=== PATIENT | female | born 1935 | race Caucasian/White ===

== ENCOUNTER 2017-06-06 14:47 | Emergency (ER) | payer MEDICARE, BC ==
[2017-06-06 14:54] VITALS: RESP 18; TEMP 97.3
[2017-06-06] MEDS ORDERED: SODIUM CHLORIDE 0.9% 500 ML IV STA (15:12)
--- NOTE | 2017-06-06 15:19 | ED ---
General Adult HPI - General Chief complaint: Fall Stated complaint: Fall Time Seen by Provider: 06/06/17 14:49 Source: patient, EMS, RN notes reviewed Mode of arrival: EMS Limitations: no limitations - History of Present Illness Initial comments: Patient 82-year-old female who presents emergency room today by EMS, with chief complaint of a fall that occurred just prior to arrival. 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 She states she did not lose consciousness. Does admit to a bruise over her right cheek. Also admits to some abrasions or skin tears to the right forearm and hand. Patient states is no pain in this area has full range of motion. Patient states she was able to get herself up with some help. Denies any lightheadedness or dizziness at this time. She states that she has a history of orthostatic hypotension has had similar symptoms in the past. Patient denies any recent fever, chills, shortness of breath, chest pain, back pain, abdominal pain, nausea or vomiting, numbness or tingling, dysuria or hematuria, constipation or diarrhea, headaches or visual changes, or any other complaints. - Related Data Home Medications Medication Instructions Recorded Confirmed Allopurinol [Zyloprim] 300 mg PO DAILY 06/06/17 06/06/17 Aspirin [Adult Low Dose Aspirin EC] 81 mg PO DAILY 06/06/17 06/06/17 Cholecalciferol [Vitamin D3] 1,000 unit PO DAILY 06/06/17 06/06/17 Levothyroxine Sodium [Synthroid] 25 mcg PO DAILY 06/06/17 06/06/17 buPROPion SR [Wellbutrin Sr] 100 mg PO DAILY 06/06/17 06/06/17 Allergies Allergy/AdvReac Type Severity Reaction Status Date / Time Penicillins Allergy Unknown Verified 06/06/17 15:04 Sulfa (Sulfonamide Allergy Unknown Verified 06/06/17 15:04 Antibiotics) Review of Systems ROS Statement: Those systems with pertinent positive or pertinent negative responses have been documented in the HPI. ROS Other: All systems not noted in ROS Statement are negative. Past Medical History Additional Past Medical History / Comment(s): Orthostatic hypotension, pacemaker , History of Any Multi-Drug Resistant Organisms: None Reported Past Surgical History: Orthopedic Surgery Past Psychological History: No Psychological Hx Reported Smoking Status: Former smoker Past Alcohol Use History: None Reported Past Drug Use History: None Reported General Exam - General Exam Comments Initial Comments: General: The patient is awake and alert, in no distress, and does not appear acutely ill. Eye: Pupils are equal, round and reactive to light, extra-ocular movements are intact. No nystagmus. There is normal conjunctiva bilaterally. No signs of icterus. Ears, nose, mouth and throat: There are moist mucous membranes and no oral lesions. Neck: The neck is supple, there is no tenderness or JVD. Cardiovascular: There is a regular rate and rhythm. No murmur, rub or gallop is appreciated. Respiratory: Lungs are clear to auscultation, respirations are non-labored, breath sounds are equal. No wheezes, stridor, rales, or rhonchi. Gastrointestinal: Soft, non-distended, non-tender abdomen without masses or organomegaly noted. There is no rebound or guarding present. No CVA tenderness. Bowel sounds are unremarkable. Musculoskeletal: Normal ROM, no tenderness. Strength 5/5. Sensation intact. Pulses equal bilaterally 2+. Neurological: A&O x 3. CN II-XII intact, There are no obvious motor or sensory deficits. Coordination appears grossly intact. Speech is normal. Skin: Patient does have some bruising on the right cheek and right forehead. Patient does have a small laceration to the right cheek area not bleeding. Psychiatric: Cooperative, appropriate mood & affect, normal judgment. Limitations: no limitations Course Vital Signs 06/06/17 06/06/17 14:50 16:54 Temperature 97.3 F L Pulse Rate 78 Pulse Rate [ 76 Sitting] Pulse Rate [ 80 Standing] Pulse Rate [ 76 Supine] Respiratory 18 Rate Blood Pressure 177/81 Blood Pressure 179/87 [Sitting] Blood Pressure 161/72 [Standing] Blood Pressure 183/84 [Supine] O2 Sat by Pulse 99 Oximetry EKG Findings - EKG Comments: EKG Findings:: EKG performed at 1542: Shows an electronically ventricular paced rhythm at 69 beats per minute. MI interval 238. QRS 164. QT/QTc 466/499 Medical Decision Making - Medical Decision Making Case discussed in detail with attending physician Dr. Pino. Patient's CT of the head and neck was reviewed and shows 1. Mild generalized atrophy. No acute intracranial abnormality seen. 2. High density material filling and slightly expanding they've frontal sinuses. Posterior russo of the frontal sinuses are extremely thin or dehiscent. . May reflect a mucocele. These findings were discussed with the patient. She does not that she has been following up with ENT and also ophthalmology through [facility] for problems with her sinuses. She states she's been on a nasal spray which to help quit that. Patient denies any changes with this condition but does admit to improvement with the nasal spray that she's currently using. - Lab Data Result diagrams: 06/06/17 15:30 06/06/17 15:30 Lab Results 06/06/17 06/06/17 Range/Units 15:30 15:30 WBC 6.6 (3.8-10.6) k/uL RBC 2.88 L (3.80-5.40) m/uL Hgb 9.3 L (11.4-16.0) gm/dL Hct 30.7 L (34.0-46.0) % MCV 106.4 H (80.0-100.0) fL MCH 32.3 (25.0-35.0) pg MCHC 30.3 L (31.0-37.0) g/dL RDW 17.9 H (11.5-15.5) % Plt Count 242 (150-450) k/uL Neutrophils % 72 % Lymphocytes % 14 % Monocytes % 8 % Eosinophils % 4 % Basophils % 1 % Neutrophils # 4.7 (1.3-7.7) k/uL Lymphocytes # 0.9 L (1.0-4.8) k/uL Monocytes # 0.5 (0-1.0) k/uL Eosinophils # 0.3 (0-0.7) k/uL Basophils # 0.0 (0-0.2) k/uL Hypochromasia Slight Anisocytosis Slight Macrocytosis Marked Sodium 140 (137-145) mmol/L Potassium 4.4 (3.5-5.1) mmol/L Chloride 107 (98-107) mmol/L Carbon Dioxide 23 (22-30) mmol/L Anion Gap 10 mmol/L BUN 26 H (7-17) mg/dL Creatinine 1.62 H (0.52-1.04) mg/dL Est GFR (MDRD) Af Amer 37 (>60 ml/min/1.73 sqM) Est GFR (MDRD) Non-Af 30 (>60 ml/min/1.73 sqM) Glucose 107 H (74-99) mg/dL Calcium 9.4 (8.4-10.2) mg/dL Total Bilirubin 0.3 (0.2-1.3) mg/dL AST 24 (14-36) U/L ALT 30 (9-52) U/L Alkaline Phosphatase 93 (38-126) U/L Total Protein 6.4 (6.3-8.2) g/dL Albumin 3.9 (3.5-5.0) g/dL Disposition Clinical Impression: Fall, Facial contusion, Skin tear of right forearm without complication Disposition: HOME SELF-CARE Condition: Good Instructions: Skin Tear (ED) Additional Instructions: Please follow-up with the ENT specialist for mucocele as discussed. Please change dressing daily to the right forearm. Please return to emergency room if symptoms increase or worsen or for any other concerns. Referrals: Nonstaff,Physician [Primary Care Provider] - 1-2 days Franky Ching DO [Doctor of Osteopathic Medicine] - 1-2 days Time of Disposition: 17:07
[2017-06-06 15:42] LABS: Anisocytosis Slight; Basophils % (A) 1 %; CH 32.5; CHCM 30.7; Eosinophils # (A) 0.3 k/uL (0-0.7); Eosinophils % (A) 4 %; HCT 30.7 % (34.0-46.0); HDW 2.49; HGB 9.3 gm/dL (11.4-16.0); Hypochromasia Slight; Luc # (Auto) 0.13; Luc % (Auto) 2; Lymphocytes # (A) 0.9 k/uL (1.0-4.8); Lymphocytes % (A) 14 %; MCH 32.3 pg (25.0-35.0); MCHC 30.3 g/dL (31.0-37.0); MCV 106.4 fL (80.0-100.0); Macrocytosis Marked; Mean Platelet Volume 7.9; Monocytes # (A) 0.5 k/uL (0-1.0); Monocytes % (A) 8 %; Neutrophils # (A) 4.7 k/uL (1.3-7.7); Neutrophils % (A) 72 %; RBC 2.88 m/uL (3.80-5.40); RDW 17.9 % (11.5-15.5); WBC 6.6 k/uL (3.8-10.6); WBC (Perox) 6.66
[2017-06-06 15:46] LABS: Calcium 9.4 mg/dL (8.4-10.2); Potassium 4.4 mmol/L (3.5-5.1); Total Bilirubin 0.3 mg/dL (0.2-1.3); Total Protein 6.4 g/dL (6.3-8.2)
--- NOTE | 2017-06-06 16:23 | CT ---
EXAMINATION TYPE: CT brain lucille larose con DATE OF EXAM: 06/06/2017 COMPARISON: NONE HISTORY: 82-year-old female fall CT DLP: 1586 mGycm Automated exposure control for dose reduction was used. Technique: Examination of the head was done in axial plane without intravenous contrast. Coronal and sagittal reconstructions performed. CT of the cervical spine was obtained in axial plane without intravenous injection of contrast mater ial. Coronal and sagittal reformatted images were obtained from the axial views for evaluation of f ractures, spinal alignment and canal. FINDINGS: Head: There is no evidence of acute intracranial hemorrhage, acute ischemic changes, mass, mass-effect, or extra-axial fluid collection. There is no effacement of cerebral sulci or basal subarachnoid cister ns. There is no hydrocephalus. There is no midline shift. Whitley-white matter distinction is preserv ed. Mild generalized supratentorial volume loss. No calvarial fracture. There is high density material filling the frontal sinuses. The posterior wall of the frontal sinuses appear expanded and are either severely thinned or dehiscent. Some mucosal thickening scattered in t he ethmoid air cells and left sphenoid sinus. Mastoid air cells well pneumatized. Cervical spine: No craniocervical junction abnormality, predental space widening, or prevertebral soft tissue swellin g. There is either pannus or hypertrophied synovium at the C1 dens articulation mildly narrowing the spinal canal at this level. Severe disc/endplate degenerative changes as well as hypertrophic facet and uncovertebral joint arthr opathy throughout. There is a variable moderate spinal canal stenosis throughout, greatest at C6-C7. Grade 1 anterolisthesis that C3-C4 and C7-T1. Grade 1 retrolisthesis at C4-C5 and C6-C7. Variable moderate multilevel neural foraminal stenosis. No acute fracture of the cervical spine is seen. Sagittal and coronal reformatted images confirm above findings. COMBINED IMPRESSION: 1. Mild generalized atrophy. No acute intracranial abnormality seen. 2. High density material filling and slightly expanding the frontal sinuses. The posterior russo of t he frontal sinuses are either extremely thin or dehiscent. Findings may reflect a mucocele. Correlate for any known diagnosis and consider ENT referral. 3. No acute fracture of the cervical cervical spine seen. However, there are severe multilevel spondy lotic changes and secondary degenerative spondylolistheses.
[2017-06-06 17:41] VITALS: BP 164/74; PULSE 78
--- NOTE | 2017-06-07 06:10 | CDI ---
Dear Jaiden Pino: Please do addendum length of the laceration and also procedure if done. Thank you, Tirso Meadows, [employer] Handler Supervisor. If you have any questions, please contact [employer] at [phone]. mtdD
== END 2017-06-06 17:41 | disposition home or self-care (01) ==
LOC: EC 14:47
DX: S51.811A Laceration without foreign body of right forearm, initial encounter (principal); S00.83XA Contusion of other part of head, initial encounter; M62.58 Muscle wasting and atrophy, not elsewhere classified, other site; S01.411A Laceration without foreign body of right cheek and temporomandibular area, initial encounter; Z87.891 Personal history of nicotine dependence; Z79.82 Long term (current) use of aspirin; Z79.899 Other long term (current) drug therapy; Z88.0 Allergy status to penicillin; Z88.2 Allergy status to sulfonamides; W01.10XA Fall on same level from slipping, tripping and stumbling with subsequent striking against unspecified object, initial encounter; Y93.89 Activity, other specified
CPT/HCPCS: 36415; 70450; 72125; 80053; 85025; 93005; 99284

== ENCOUNTER 2018-01-11 14:21 | Inpatient (IN) | payer MEDICARE, BC ==
[2018-01-11] MEDS ORDERED: SODIUM CHLORIDE 0.9% 1,000 ML IV STA (14:54)
--- NOTE | 2018-01-11 15:10 | ED ---
General Adult HPI - General Chief complaint: Weakness Stated complaint: cardiac Source: EMS Mode of arrival: EMS Limitations: physical limitation - History of Present Illness Initial comments: Dictation was produced using [employer] dictation software. please excuse any grammatical, word or spelling errors. Chief Complaint: 82-year-old female presents with 2 days of generalized weakness and acute episode of presyncope. History of Present Illness: 82-year-old female with past medical history of glaucoma, dyslipidemia, status post pacemaker presents with 1 day of generalized weakness and one episode of presyncope. Patient reports that she was feeling generally weak over the past day. She has felt that she needed to be confined to bed due to her weakness. Today she attempted to get up to go to the fridge to eat some pudding when she almost passed out. She called EMS and was brought to the emergency department. Patient denies any constitutional symptoms. Denies any pain anywhere body. The ROS documented in this emergency department record has been reviewed and confirmed by me. Those systems with pertinent positive or negative responses have been documented in the HPI. All other systems are other negative and/or noncontributory. - Related Data Home Medications Medication Instructions Recorded Confirmed Allopurinol [Zyloprim] 300 mg PO DAILY 06/06/17 01/11/18 Aspirin [Adult Low Dose Aspirin EC] 81 mg PO DAILY 06/06/17 01/11/18 Cholecalciferol [Vitamin D3] 1,000 unit PO DAILY 06/06/17 01/11/18 Levothyroxine Sodium [Synthroid] 25 mcg PO DAILY 06/06/17 01/11/18 buPROPion SR [Wellbutrin Sr] 100 mg PO TID 06/06/17 01/11/18 Atorvastatin [Lipitor] 20 mg PO HS 01/11/18 01/11/18 Dorzolamide-Timolol 2%/0.5% 1 drop BOTH EYES BID 01/11/18 01/11/18 [dorzolamide-Timolol 2%/0.5%] Latanoprost [Xalatan 0.005%] 1 drop BOTH EYES HS 01/11/18 01/11/18 Allergies Allergy/AdvReac Type Severity Reaction Status Date / Time Penicillins Allergy Unknown Verified 06/06/17 15:04 Sulfa (Sulfonamide Allergy Unknown Verified 06/06/17 15:04 Antibiotics) Review of Systems ROS Statement: Those systems with pertinent positive or pertinent negative responses have been documented in the HPI. ROS Other: All systems not noted in ROS Statement are negative. Past Medical History Past Medical History: COPD, Thyroid Disorder Additional Past Medical History / Comment(s): Orthostatic hypotension, pacemaker , History of Any Multi-Drug Resistant Organisms: None Reported Past Surgical History: Heart Catheterization With Stent, Orthopedic Surgery, Tonsillectomy Past Psychological History: No Psychological Hx Reported Smoking Status: Former smoker Past Alcohol Use History: None Reported Past Drug Use History: None Reported General Exam - General Exam Comments Initial Comments: PHYSICAL EXAM: General Impression: Alert and oriented x3, not in acute distress HEENT: Normocephalic atraumatic, extra-ocular movements intact, pupils equal and reactive to light bilaterally, mucous membranes moist. Cardiovascular: Heart regular rate and rhythm, S1&S2 audible, no murmurs, rubs or gallops Chest: Lungs clear to auscultation bilaterally, no rhonchi, no wheeze, no rales , pacer scar Abdomen: Bowel sounds present, abdomen soft, non-tender, non-distended, no organomegaly Musculoskeletal: Pulses present and equal in all extremities, no peripheral edema Motor: Moves all extremities grossly, no focal deficits noted Neurological: CN II-XII grossly intact, no focal motor or sensory deficits noted Skin: Intact with no visualized rashes Psych: Normal affect and mood Limitations: physical limitation Course Vital Signs 01/11/18 14:24 Temperature 97.9 F Pulse Rate 71 Respiratory 18 Rate Blood Pressure 150/63 O2 Sat by Pulse 100 Oximetry Medical Decision Making - Medical Decision Making ED course: 82-year-old female presents with generalized weakness and acute episode of presyncope. Vital signs upon arrival are within acceptable limits. At this point it is unclear based on history what is causing patient's generalized weakness. There is suspicion that this may be related to cardiomyopathy. Patient does seem mildly dehydrated and has had poor oral intake over the last several hours. Patient denied falling. Denies any palpitations during that episode. Return evaluation obtained. No leukocytosis. White blood cell count is 8.1. Hemoglobin is 11.0 which is around her baseline. There is some signs of macrocytosis mildly. Coag panel unremarkable. Metabolic panel shows sodium 131 , non-gap acidosis with a bicarb of 18. Mild elevation of renal markers which is at her baseline. Magnesium level I.5. Rest metabolic panel is unremarkable. Chest x-rays obtained there is findings of retrocardiac airspace disease suspicious for atelectasis versus pneumonia. More history was obtained from the patient. She did state that she was having worsening coughing and shortness of breath. She however did not report any fevers, chills or night sweats. Given clinical presentation patient's symptoms likely secondary to dehydration, pulmonary infection and possibly congestive heart failure. Blood cultures obtained. Patient given 1 dose of antibiotics. Patient vancomycin for possible cavitary lesion which may represent MRSA pneumonia. Patient to benefit from admission for fluid resuscitation, antibiotics and reevaluation for improvement. EKG Interpretation: A 12 lead EKG was obtained. It was interpreted by myself and attending physician. There is a P wave before every QRS complex. Rate is 71. Rhythm is atrial sense ventricular. QRS 160,. Interval to 20, QTC 491 - Lab Data Result diagrams: 01/11/18 15:06 01/11/18 15:06 Lab Results 01/11/18 01/11/18 01/11/18 Range/Units 15:06 15:06 15:06 WBC 8.1 (3.8-10.6) k/uL RBC 3.40 L (3.80-5.40) m/uL Hgb 11.0 L (11.4-16.0) gm/dL Hct 34.0 (34.0-46.0) % MCV 100.1 H (80.0-100.0) fL MCH 32.3 (25.0-35.0) pg MCHC 32.3 (31.0-37.0) g/dL RDW 14.9 (11.5-15.5) % Plt Count 242 (150-450) k/uL Neutrophils % 80 % Lymphocytes % 11 % Monocytes % 5 % Eosinophils % 2 % Basophils % 0 % Neutrophils # 6.4 (1.3-7.7) k/uL Lymphocytes # 0.9 L (1.0-4.8) k/uL Monocytes # 0.4 (0-1.0) k/uL Eosinophils # 0.1 (0-0.7) k/uL Basophils # 0.0 (0-0.2) k/uL Hypochromasia Slight Macrocytosis Slight PT (9.0-12.0) sec INR (<1.2) APTT (22.0-30.0) sec Sodium 131 L (137-145) mmol/L Potassium 4.6 (3.5-5.1) mmol/L Chloride 102 (98-107) mmol/L Carbon Dioxide 18 L (22-30) mmol/L Anion Gap 11 mmol/L BUN 50 H (7-17) mg/dL Creatinine 1.60 H (0.52-1.04) mg/dL Est GFR (CKD-EPI)AfAm 34 (>60 ml/min/1.73 sqM) Est GFR (CKD-EPI)NonAf 29 (>60 ml/min/1.73 sqM) Glucose 93 (74-99) mg/dL Plasma Lactic Acid Rios (0.7-2.0) mmol/L Calcium 8.9 (8.4-10.2) mg/dL Magnesium 1.5 L (1.6-2.3) mg/dL Total Bilirubin 0.3 (0.2-1.3) mg/dL AST 22 (14-36) U/L ALT 24 (9-52) U/L Alkaline Phosphatase 51 (38-126) U/L Total Creatine Kinase 49 (30-135) U/L CK-MB (CK-2) 2.6 H* (0.0-2.4) ng/mL CK-MB (CK-2) Rel Index 5.3 Troponin I <0.012 (0.000-0.034) ng/mL NT-Pro-B Natriuret Pep pg/mL Total Protein 5.4 L (6.3-8.2) g/dL Albumin 3.5 (3.5-5.0) g/dL TSH 1.330 (0.465-4.680) mIU/L 01/11/18 01/11/18 01/11/18 Range/Units 15:06 15:06 15:06 WBC (3.8-10.6) k/uL RBC (3.80-5.40) m/uL Hgb (11.4-16.0) gm/dL Hct (34.0-46.0) % MCV (80.0-100.0) fL MCH (25.0-35.0) pg MCHC (31.0-37.0) g/dL RDW (11.5-15.5) % Plt Count (150-450) k/uL Neutrophils % % Lymphocytes % % Monocytes % % Eosinophils % % Basophils % % Neutrophils # (1.3-7.7) k/uL Lymphocytes # (1.0-4.8) k/uL Monocytes # (0-1.0) k/uL Eosinophils # (0-0.7) k/uL Basophils # (0-0.2) k/uL Hypochromasia Macrocytosis PT 11.3 (9.0-12.0) sec INR 1.2 H (<1.2) APTT 22.4 (22.0-30.0) sec Sodium (137-145) mmol/L Potassium (3.5-5.1) mmol/L Chloride (98-107) mmol/L Carbon Dioxide (22-30) mmol/L Anion Gap mmol/L BUN (7-17) mg/dL Creatinine (0.52-1.04) mg/dL Est GFR (CKD-EPI)AfAm (>60 ml/min/1.73 sqM) Est GFR (CKD-EPI)NonAf (>60 ml/min/1.73 sqM) Glucose (74-99) mg/dL Plasma Lactic Acid Rios 1.1 (0.7-2.0) mmol/L Calcium (8.4-10.2) mg/dL Magnesium (1.6-2.3) mg/dL Total Bilirubin (0.2-1.3) mg/dL AST (14-36) U/L ALT (9-52) U/L Alkaline Phosphatase (38-126) U/L Total Creatine Kinase (30-135) U/L CK-MB (CK-2) (0.0-2.4) ng/mL CK-MB (CK-2) Rel Index Troponin I (0.000-0.034) ng/mL NT-Pro-B Natriuret Pep 1140 pg/mL Total Protein (6.3-8.2) g/dL Albumin (3.5-5.0) g/dL TSH (0.465-4.680) mIU/L Disposition Clinical Impression: Pre-syncope Disposition: ADMITTED IP TO THIS HOSP Condition: Fair Is patient prescribed a controlled substance at d/c from ED?: No Referrals: Nonstaff,Physician [Primary Care Provider] - 1-2 days Decision Time: 16:40
[2018-01-11] MEDS ORDERED: SODIUM CHLORIDE 0.9% 500 ML IV STA (15:15)
--- NOTE | 2018-01-11 15:30 | XR ---
EXAMINATION TYPE: XR chest 2V DATE OF EXAM: 01/11/2018 COMPARISON: NONE HISTORY: Shortness of breath TECHNIQUE: Frontal and lateral views of the chest are obtained. 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 N o visceral pleural line is seen. Slight calcific right pleural parenchymal scarring and biapical pleu ral thickening are noted. Increased density is seen in the retrocardiac airspace overlying the lower thoracic spine not well delineated on the frontal view. Cardiomediastinal silhouette is within normal limits. Multilevel mild to moderate degenerative changes of the thoracic spine are noted. Multilead left-sided cardiac device is seen. IMPRESSION: 1. Retrocardiac airspace disease seen on the lateral view overlying the lower thoracic spine that cou ld represent atelectasis or pneumonia, however continued follow-up is recommended to resolution to en sure no underlying mass. 2. Emphysematous changes.
[2018-01-11 15:33] LABS: Basophils % (A) 0 %; Eosinophils # (A) 0.1 k/uL (0-0.7); Eosinophils % (A) 2 %; Hypochromasia Slight; Lymphocytes # (A) 0.9 k/uL (1.0-4.8); Lymphocytes % (A) 11 %; MCH 32.3 pg (25.0-35.0); MCHC 32.3 g/dL (31.0-37.0); MCV 100.1 fL (80.0-100.0); Macrocytosis Slight; Mean Platelet Volume 7.8; Monocytes # (A) 0.4 k/uL (0-1.0); Monocytes % (A) 5 %; Neutrophils # (A) 6.4 k/uL (1.3-7.7); Neutrophils % (A) 80 %; Platelet Count 242 k/uL (150-450); RDW 14.9 % (11.5-15.5); WBC 8.1 k/uL (3.8-10.6)
[2018-01-11 15:41] LABS: Albumin 3.5 g/dL (3.5-5.0); Calcium 8.9 mg/dL (8.4-10.2); Magnesium 1.5 mg/dL (1.6-2.3); Potassium 4.6 mmol/L (3.5-5.1); Total Bilirubin 0.3 mg/dL (0.2-1.3); Total Protein 5.4 g/dL (6.3-8.2)
[2018-01-11 15:46] LABS: Creatine Kinase 49 U/L (30-135)
[2018-01-11 15:47] LABS: INR 1.2 (<1.2); Partial Thromboplastin Time 22.4 sec (22.0-30.0); Prothrombin Time 11.3 sec (9.0-12.0)
[2018-01-11 15:57] LABS: Troponin I <0.012 ng/mL (0.000-0.034)
[2018-01-11 15:59] LABS: Creatine Kinase MB 2.6 ng/mL (0.0-2.4)
[2018-01-11] MEDS ORDERED: LEVOFLOXACIN 750MG-D5W PMX 750 MG in DEXTROSE/WATER 1 150ML.BAG IVPB STA (16:22)
[2018-01-11] MEDS ORDERED: VANCOMYCIN 1,000 MG in SODIUM CHLORIDE 0.9% 250 ML IVPB STA (16:27)
[2018-01-11] MEDS ORDERED: NALOXONE 0.4 MG/ML 1 ML VIAL IV PRN (16:38)
[2018-01-11] MEDS ORDERED: MAGNESIUM SULFATE-D5W PMX 1 GM in DEXTROSE/WATER 1 100ML.BAG IVPB ONE (16:40)
--- NOTE | 2018-01-11 17:49 | P.HPIM ---
History of Present Illness Patient is a very pleasant 82-year-old female came in with comments of dizziness and lightheadedness has been going on for a few days. Patient has been dealing with this patient has been dealing with dehydration unable to keep up with the oral fluid intake. Patient is found to be hyponatremic and found to have an creatinine of 1.6 I do not have her baseline creatinine. Patient does have a pacemaker for this dizziness patient is on third pacemaker so far. Patient follows with Dr. Gomez as an outpatient. Patient is also undergoing neurological workup for macrocytic anemia probably malodorous Lasix and the mother her hemoglobin is 11 at this point of time patient is hypomagnesemic as well. Patient denied any fever chills dysuria patient denied any cough patient does not have leukocytosis patient does not have any fever although chest x-ray was suspicious for some atelectasis or pneumonia patient doesn't even have cough my suspicion clinically is extremely low for pneumonia because of which anti-medics will be discussed in your patient will be admitted for dehydration IV fluids related to the pacemaker. TSH is essentially within normal limits. Review of Systems REVIEW OF SYSTEMS: CONSTITUTIONAL: No fever, no malaise, no fatigue. HEENT: No recent visual problems or hearing problems. Denied any sore throat. CARDIOVASCULAR: No chest pain, orthopnea, PND, no palpitations, no syncope. PULMONARY: No shortness of breath, no cough, no hemoptysis. GASTROINTESTINAL: No diarrhea, no nausea, no vomiting, no abdominal pain. Normoactive bowel sounds. NEUROLOGICAL: No headaches, no weakness, no numbness. HEMATOLOGICAL: Denies any bleeding or petechiae. GENITOURINARY: Denies any burning micturition, frequency, or urgency. MUSCULOSKELETAL/RHEUMATOLOGICAL: Denies any joint pain, swelling, or any muscle pain. ENDOCRINE: Denies any polyuria or polydipsia. The rest of the 14-point review of systems is negative. Past Medical History Past Medical History: COPD, Thyroid Disorder Additional Past Medical History / Comment(s): Orthostatic hypotension, pacemaker , History of Any Multi-Drug Resistant Organisms: None Reported Past Surgical History: Heart Catheterization With Stent, Orthopedic Surgery, Tonsillectomy Past Psychological History: No Psychological Hx Reported Smoking Status: Former smoker Past Alcohol Use History: None Reported Past Drug Use History: None Reported Medications and Allergies Home Medications Medication Instructions Recorded Confirmed Type Allopurinol [Zyloprim] 300 mg PO DAILY 06/06/17 01/11/18 History Aspirin [Adult Low Dose Aspirin EC] 81 mg PO DAILY 06/06/17 01/11/18 History Cholecalciferol [Vitamin D3] 1,000 unit PO DAILY 06/06/17 01/11/18 History Levothyroxine Sodium [Synthroid] 25 mcg PO DAILY 06/06/17 01/11/18 History buPROPion SR [Wellbutrin Sr] 100 mg PO TID 06/06/17 01/11/18 History Atorvastatin [Lipitor] 20 mg PO HS 01/11/18 01/11/18 History Dorzolamide-Timolol 2%/0.5% 1 drop BOTH EYES BID 01/11/18 01/11/18 History [dorzolamide-Timolol 2%/0.5%] Latanoprost [Xalatan 0.005%] 1 drop BOTH EYES HS 01/11/18 01/11/18 History Allergies Allergy/AdvReac Type Severity Reaction Status Date / Time Penicillins Allergy Unknown Verified 06/06/17 15:04 Sulfa (Sulfonamide Allergy Unknown Verified 06/06/17 15:04 Antibiotics) Physical Exam Vitals: Vital Signs Temp Pulse Resp BP Pulse Ox 01/11/18 16:56 14 01/11/18 16:52 68 16 170/74 99 01/11/18 15:30 70 16 138/61 98 01/11/18 14:24 97.9 F 71 18 150/63 100 Intake and Output 01/11/18 01/11/18 01/11/18 06:59 14:59 22:59 Other: Weight 50.349 kg PHYSICAL EXAMINATION: GENERAL: The patient is alert and oriented x3, not in any acute distress. Well developed, well nourished. HEENT: Pupils are round and equally reacting to light. EOMI. No scleral icterus. No conjunctival pallor. Normocephalic, atraumatic. No pharyngeal erythema. No thyromegaly. CARDIOVASCULAR: S1 and S2 present. No murmurs, rubs, or gallops. PULMONARY: Chest is clear to auscultation, no wheezing or crackles. ABDOMEN: Soft, nontender, nondistended, normoactive bowel sounds. No palpable organomegaly. MUSCULOSKELETAL: No joint swelling or deformity. EXTREMITIES: No cyanosis, clubbing, or pedal edema. NEUROLOGICAL: Gross neurological examination did not reveal any focal deficits. SKIN: No rashes. Results CBC & Chem 7: 01/11/18 15:06 01/11/18 15:06 Labs: Abnormal Lab Results - Last 24 Hours (Table) 01/11/18 01/11/18 01/11/18 Range/Units 15:06 15:06 15:06 RBC 3.40 L (3.80-5.40) m/uL Hgb 11.0 L (11.4-16.0) gm/dL MCV 100.1 H (80.0-100.0) fL Lymphocytes # 0.9 L (1.0-4.8) k/uL INR (<1.2) Sodium 131 L (137-145) mmol/L Carbon Dioxide 18 L (22-30) mmol/L BUN 50 H (7-17) mg/dL Creatinine 1.60 H (0.52-1.04) mg/dL Magnesium 1.5 L (1.6-2.3) mg/dL CK-MB (CK-2) 2.6 H* (0.0-2.4) ng/mL Total Protein 5.4 L (6.3-8.2) g/dL 01/11/18 Range/Units 15:06 RBC (3.80-5.40) m/uL Hgb (11.4-16.0) gm/dL MCV (80.0-100.0) fL Lymphocytes # (1.0-4.8) k/uL INR 1.2 H (<1.2) Sodium (137-145) mmol/L Carbon Dioxide (22-30) mmol/L BUN (7-17) mg/dL Creatinine (0.52-1.04) mg/dL Magnesium (1.6-2.3) mg/dL CK-MB (CK-2) (0.0-2.4) ng/mL Total Protein (6.3-8.2) g/dL Assessment and Plan Plan: -Dizziness: Secondary to intravascular depletion dehydration patient will be started on IV fluids will recheck the basic metabolic profile tomorrow. Patient is a pacemaker which will be in progress patient presently has basic rhythm 100%. -Hypovolemic hyponatremia: IV fluids as mentioned above -Hypomagnesemia: Replace magnesium -Acute renal failure secondary to intravascular depletion: Prerenal azotemia IV fluids as mentioned above -Macrocytic anemia: Workup as an outpatient-etiology is not known -Mild anion gap and non-anion gap metabolic acidosis: Secondary to uremia and the hyperkalemia. -Ruled out pneumonia. -Hypothyroidism TSH within normal limits continue home dose of levothyroxine.
[2018-01-11] MEDS: LEVOTHYROXINE 25 MCG TAB PO SCH (18:06)
[2018-01-11] MEDS: buPROPion SR 100 MG TABLET.ER PO SCH ×2 (18:06→21:41)
[2018-01-11] MEDS: ASPIRIN 81 MG PO SCH (18:06)
[2018-01-11] MEDS: SODIUM CHLORIDE 0.9% 1,000 ML IV SCH (18:07)
[2018-01-11] MEDS: CHOLECALCIFEROL 1,000 UNIT TAB PO SCH (18:07)
[2018-01-11] MEDS: ATORVASTATIN 20 MG TAB PO SCH (20:26)
[2018-01-11] MEDS: LATANOPROST 0.005% OPHTH DROPS 2.5 ML BTL BOTH EYES SCH (20:26)
[2018-01-11] MEDS: DORZOLAMIDE-TIMOLOL 2-0.5% DROPS 10 ML BTL BOTH EYES SCH (20:26)
[2018-01-11] MEDS: HEPARIN SODIUM,PORCINE 5,000 UNIT/ML 1 ML VIAL SQ SCH (20:29)
[2018-01-11 21:12] LABS: Appearance,Urine Clear (Clear); Bilirubin,Urine Negative (Negative); Blood,Urine Negative (Negative); Color,Urine Light Yellow; Glucose,Urine (UA) Negative (Negative); Ketones,Urine Negative (Negative); Leukocyte Esterase,Urine Negative (Negative); Nitrite,Urine Negative (Negative); PH, Urine 5.5 (5.0-8.0); Protein,Urine Negative (Negative); Specific Gravity,Urine 1.009 (1.001-1.035); Urobilinogen,Urine <2.0 mg/dL (<2.0)
[2018-01-11] MEDS: MAGNESIUM SULFATE-D5W PMX 1 GM in DEXTROSE/WATER 1 100ML.BAG IVPB SCH ×2 (21:19→21:49)
[2018-01-12] MEDS: LEVOTHYROXINE 25 MCG TAB PO SCH (05:50)
[2018-01-12] MEDS: HEPARIN SODIUM,PORCINE 5,000 UNIT/ML 1 ML VIAL SQ SCH ×2 (08:06→16:11)
[2018-01-12] MEDS: buPROPion SR 100 MG TABLET.ER PO SCH ×3 (08:06→21:45)
[2018-01-12] MEDS: ASPIRIN 81 MG PO SCH (08:07)
[2018-01-12] MEDS: DORZOLAMIDE-TIMOLOL 2-0.5% DROPS 10 ML BTL BOTH EYES SCH ×2 (08:08→21:45)
[2018-01-12] MEDS: SODIUM CHLORIDE 0.9% 1,000 ML IV SCH ×3 (08:20→21:46)
[2018-01-12 08:35] LABS: Calcium 8.6 mg/dL (8.4-10.2)
--- NOTE | 2018-01-12 12:38 | CONS ---
CONSULTATION This is an 82-year-old female who presented with weakness. When I interviewed her, she said she denied any chest discomfort or shortness of breath, but she had a near syncopal spell when she was in her daughter's home and this has been almost 5 months since her last spell. She was found to be hyponatremic, creatinine 1.6. TSH normal. Microcytic anemia noted. Low magnesium. REVIEW OF SYSTEMS: No fever, chills, or rigors. No cough or expectoration. No nausea, vomiting, or diarrhea. No hematuria or dysuria. No strokes or seizures or skin lesions. No musculoskeletal complaints. PAST MEDICAL HISTORY: Past medical history of bradycardia, status post permanent pacemaker implantation. She follows with Dr. Vanegas. History of orthostatic hypotension. Cardiac catheterization, coronary stenting in the past. SOCIAL HISTORY: Former smoker. No alcohol use. MEDICATIONS: Home medications include allopurinol, aspirin, vitamin D, levothyroxine, Wellbutrin, atorvastatin, Xalatan and timolol eye drops. ALLERGIES: Allergies to PENICILLIN, SULFA. PHYSICAL EXAMINATION: On examination, her blood pressure is 120/53 and 140/62 mmHg. Pulse rate in the 60s. Afebrile, 98.4 degrees Fahrenheit. Respirations are normal. Breath sounds are reduced bilaterally. Heart sounds S1, S2 are normal. No murmurs or gallops. No rub. ABDOMEN: Soft. Extremities are warm. IMPRESSION: 1. History of bradycardia, status post permanent pacemaker implantation and pacemaker was functioning normally. She is 100% paced on the telemetry and a 12-lead ECG shows paced rhythm. 2. History of dysautonomia, presenting with dizziness, lightheadedness, and near syncope. 3. , likely hypovolemic hyponatremia, which is being replaced. She also has prerenal azotemia. SUGGEST: IV fluids, encourage oral fluid. She is not on any antihypertensives medications that causes drop in blood pressure. She will follow up with Dr. Vanegas as an outpatient. Please call us as needed. MMODL / IJN: [id number] /
[2018-01-12] MEDS: CHOLECALCIFEROL 1,000 UNIT TAB PO SCH (12:59)
[2018-01-12] MEDS ORDERED: SODIUM CHLORIDE 0.9% 500 ML IV ONE ×2 (13:19→14:42)
--- NOTE | 2018-01-12 14:15 | P.PN ---
Subjective 82 old admitted secondary to intravascular depletion dehydration acute renal failure hyponatremia patient received IV fluids with improvement in creatinine from 1.6-1.3 and improvement in sodium from 131-133. Patient is comparing of significant weakness and her continued dizziness because of which I'm holding her discharged today patient was evaluated by cardiology patient has a pacemaker. Patient has a history of dizziness for a long time. Patient was to person assist when discussed with nursing staff will obtain. PT And OT consultation. Repeat basic metabolic profile tomorrow Constitutional: Denied any fatigue denied any fever. Cardio vascular: denied any chest pain, palpitations Gastrointestinal denied any nausea vomiting Pulmonary: Denied any shortness of breath cough Neurologic denied any new focal deficits Objective - Vital Signs Vital signs: Vital Signs Temp 98.4 F 01/12/18 06:26 Pulse 73 01/12/18 06:26 Resp 17 01/12/18 06:26 BP 120/53 01/12/18 06:26 Pulse Ox 99 01/12/18 09:27 Intake & Output 01/11/18 01/12/18 01/12/18 18:59 06:59 18:59 Weight 50.349 kg 50.349 kg Other: Voiding Method Bedside Commode # Voids 2 2 # Bowel Movements 1 - Exam PHYSICAL EXAMINATION: GENERAL: The patient is alert and oriented x3, not in any acute distress. Well developed, well nourished. HEENT: Pupils are round and equally reacting to light. EOMI. No scleral icterus. No conjunctival pallor. Normocephalic, atraumatic. No pharyngeal erythema. No thyromegaly. CARDIOVASCULAR: S1 and S2 present. No murmurs, rubs, or gallops. PULMONARY: Chest is clear to auscultation, no wheezing or crackles. ABDOMEN: Soft, nontender, nondistended, normoactive bowel sounds. No palpable organomegaly. MUSCULOSKELETAL: No joint swelling or deformity. EXTREMITIES: No cyanosis, clubbing, or pedal edema. NEUROLOGICAL: Gross neurological examination did not reveal any focal deficits. SKIN: No rashes. - Labs CBC & Chem 7: 01/11/18 15:06 01/12/18 07:46 Labs: Abnormal Lab Results - Last 24 Hours (Table) 01/11/18 01/11/18 01/11/18 Range/Units 15:06 15:06 15:06 RBC 3.40 L (3.80-5.40) m/uL Hgb 11.0 L (11.4-16.0) gm/dL MCV 100.1 H (80.0-100.0) fL Lymphocytes # 0.9 L (1.0-4.8) k/uL INR (<1.2) Sodium 131 L (137-145) mmol/L Carbon Dioxide 18 L (22-30) mmol/L BUN 50 H (7-17) mg/dL Creatinine 1.60 H (0.52-1.04) mg/dL Magnesium 1.5 L (1.6-2.3) mg/dL CK-MB (CK-2) 2.6 H* (0.0-2.4) ng/mL Total Protein 5.4 L (6.3-8.2) g/dL 01/11/18 01/12/18 Range/Units 15:06 07:46 RBC (3.80-5.40) m/uL Hgb (11.4-16.0) gm/dL MCV (80.0-100.0) fL Lymphocytes # (1.0-4.8) k/uL INR 1.2 H (<1.2) Sodium 133 L (137-145) mmol/L Carbon Dioxide 18 L (22-30) mmol/L BUN 61 H (7-17) mg/dL Creatinine 1.35 H (0.52-1.04) mg/dL Magnesium (1.6-2.3) mg/dL CK-MB (CK-2) (0.0-2.4) ng/mL Total Protein (6.3-8.2) g/dL Assessment and Plan Plan: -Dizziness: Secondary to intravascular depletion dehydration patient is on IV fluids will recheck the basic metabolic profile tomorrow. Patient is a pacemaker which will be in progress patient presently has basic rhythm 100%. Patient has continued dizziness -Hypovolemic hyponatremia: IV fluids as mentioned above, improved -Hypomagnesemia: Replace magnesium -Acute renal failure secondary to intravascular depletion: Prerenal azotemia IV fluids as mentioned above -Macrocytic anemia: Workup as an outpatient-etiology is not known -Mild anion gap and non-anion gap metabolic acidosis: Secondary to uremia and the hyperchloremia -Ruled out pneumonia. -Hypothyroidism TSH within normal limits continue home dose of levothyroxine.
[2018-01-12] MEDS: LATANOPROST 0.005% OPHTH DROPS 2.5 ML BTL BOTH EYES SCH (21:45)
[2018-01-12] MEDS: ATORVASTATIN 20 MG TAB PO SCH (21:45)
[2018-01-12] MEDS ORDERED: HYDROcodone/APAP 5-325MG 1 EACH TAB PO STA (23:24)
[2018-01-13] MEDS: HEPARIN SODIUM,PORCINE 5,000 UNIT/ML 1 ML VIAL SQ SCH ×2 (00:26→08:22)
[2018-01-13 01:17] LABS: Basophils % (A) 0 %; Eosinophils # (A) 0.1 k/uL (0-0.7); Eosinophils % (A) 1 %; HCT 22.9 % (34.0-46.0); Hypochromasia Moderate; Lymphocytes # (A) 1.3 k/uL (1.0-4.8); Lymphocytes % (A) 15 %; MCH 30.9 pg (25.0-35.0); Macrocytosis Slight; Mean Platelet Volume 7.4; Monocytes # (A) 0.3 k/uL (0-1.0); Monocytes % (A) 4 %; Neutrophils # (A) 6.6 k/uL (1.3-7.7); Neutrophils % (A) 78 %; Platelet Count 250 k/uL (150-450); RBC 2.22 m/uL (3.80-5.40); RDW 15.2 % (11.5-15.5); WBC 8.5 k/uL (3.8-10.6)
[2018-01-13 01:20] LABS: HGB 6.9 gm/dL (11.4-16.0)
[2018-01-13 01:20] LABS: Calcium 8.6 mg/dL (8.4-10.2); Potassium 3.9 mmol/L (3.5-5.1)
[2018-01-13] MEDS: LEVOTHYROXINE 25 MCG TAB PO SCH (06:42)
[2018-01-13] MEDS: ASPIRIN 81 MG PO SCH (08:23)
--- NOTE | 2018-01-13 09:27 | CONS ---
CONSULTATION DATE OF SERVICE: 01/13/2018 REFERRING PHYSICIAN: REASON FOR CONSULTATION: Acute upper GI bleed. HISTORY OF PRESENT ILLNESS: The patient is an 82-year-old pleasant white female who was admitted to the hospital with dizziness, lightheadedness on and off for the last several months duration. She has history of cardiac arrhythmias and had a pacemaker implantation in the past by Dr. Gomez at the [facility] and follows up with him closely. The patient also states that she has anemia for which she follows up with Dr. Chavez in the [facility] and apparently receives transfusions as needed. Yesterday while she was on the floor, she had some epigastric discomfort followed by several episodes of coffee-ground emesis and dropped hemoglobin from 11-6.5 g/dL and transferred to selective unit. She is currently receiving her 2nd unit of blood transfusion. She does not recall having this problem before. She denies prior history of peptic ulcer disease. She has been taking Motrin for right shoulder pain for the last few months duration. This morning, she is feeling better. She denies any further episodes of bleeding through the night. Her repeat CBC from this morning is still pending. PAST MEDICAL HISTORY: Significant for COPD, congestive heart failure, cardiac arrhythmias, orthostatic hypotension, hypothyroidism. PAST SURGICAL HISTORY: Tonsillectomy, cardiac catheterization, pacemaker implantation. MEDICATIONS: At home include Zyloprim, low-dose aspirin, Synthroid, vitamin D3, Wellbutrin, Lipitor, Xalatan eyedrops. ALLERGIES: To PENICILLIN, SULFA. SOCIAL HISTORY: Former smoker. No alcohol use. FAMILY HISTORY: Unremarkable. REVIEW OF SYSTEMS: Cardiopulmonary: She denies any chest pain, shortness of breath. Genitourinary: No dysuria or hematuria. Musculoskeletal: Unremarkable. Skin unremarkable. Endocrine unremarkable. Psychiatric unremarkable. Neurology: Complains of constant dizziness and lightheadedness. ENT: Vision unremarkable. Constitutional: No recent weight loss. No fevers or chills or night sweats. PHYSICAL EXAMINATION: She appears comfortable. No apparent distress. Vital signs stable. Blood pressure is 132/62, pulse rate 68, temperature 97.9. HEENT examination: Unremarkable. Conjunctivae pink. Sclerae anicteric. Oral cavity no lesions. Neck no jugular venous distention or lymph node enlargement. Chest was clear to auscultation. Heart regular rate and rhythm. Abdomen soft. There is mild tenderness in the epigastric area. Bowel sounds are positive. No organomegaly. Extremities: No pedal edema. Skin no rashes. NEUROLOGIC: Alert and oriented x3. No focal deficits. LAB: From yesterday WBC is 8.1, hemoglobin 11, platelets normal. INR 1.2. BUN 50, creatinine 1.60. Last night, hemoglobin was 6.9, currently receiving 2 units of blood transfusion. Platelets and WBCs are normal. BUN is 77, creatinine 1.3. IMPRESSION: 1. The patient who was admitted to the hospital with dizziness and lightheadedness and while in the hospital, developed 2 episodes of coffee-ground emesis last night dropping her hemoglobin from 11-6.5 g/dL. Currently receiving two units of blood transfusion. No prior history of an upper gastrointestinal pathology. She has been taking Motrin for the last several weeks for right shoulder pain. No history of peptic ulcer disease in the past. Currently she is hemodynamically stable, did not have any bleeding in the last 12 hours. She denies any melena. Rule out peptic ulcer disease. 2. History of cardiac arrhythmia status post pacemaker implantation several years ago. 3. Chronic dizziness. RECOMMENDATIONS: 1. Keep her n.p.o. 2. Continue with Protonix 40 mg q.12 hours. 3. CBC q.12 hours. 4. We will proceed with an upper endoscopy today. I discussed with the patient risks, benefits, and complications of the procedure and she is agreeable to it. Thank you for this consultation. MMODL / IJN: [id number] /
[2018-01-13] MEDS ORDERED: PROPOFOL 10 MG/ML 20 ML VIAL IV ONE (09:33)
[2018-01-13] MEDS ORDERED: IV FLUID CONTINUATION 1,000 ML IV ONE (09:35)
[2018-01-13 09:41] LABS: HCT 27.1 % (34.0-46.0); Hypochromasia Slight; MCH 31.4 pg (25.0-35.0); MCHC 31.9 g/dL (31.0-37.0); MCV 98.4 fL (80.0-100.0); Macrocytosis Slight; Mean Platelet Volume 7.4; Platelet Count 170 k/uL (150-450); RBC 2.75 m/uL (3.80-5.40); RDW 15.3 % (11.5-15.5); WBC 6.9 k/uL (3.8-10.6)
[2018-01-13] MEDS ORDERED: EPINEPHrine 10 ML SYRINGE (0.1 MG/ML) MISCELLANE ONE (09:50)
[2018-01-13 09:57] LABS: HGB 8.6 gm/dL (11.4-16.0)
--- NOTE | 2018-01-13 09:57 | P.PCN ---
Date of Procedure: 01/13/18 Procedure(s) Performed: BRIEF HISTORY: Patient is a 82-year-old, pleasant, white female, admitted to the hospital with dizziness and lightheadedness. While in the hospital she had 3 episodes of coffee-ground emesis yesterday and drop in hemoglobin from 11-6.4 g/dL. No prior history of peptic ulcer disease. She has been taking Motrin for the last few days for right shoulder pain. She is scheduled for an upper endoscopy to evaluate for upper GI source of bleeding.. PROCEDURE PERFORMED: Esophagogastroduodenoscopy with Endo Clip placement, injection epinephrine and cautery and biopsy. PREOPERATIVE DIAGNOSIS: Acute upper GI bleed. IV sedation per anesthesia. PROCEDURE: After informed consent was obtained, the patient was brought into the endoscopy unit. IV sedation was administered by Anesthesia under continuous monitoring. Initially the Olympus GIF-140 video endoscope was inserted into the mouth. Esophagus intubated without any difficulty. It was gradually advanced into the stomach and duodenum and carefully examined. The bulb and the second part of the duodenum appeared normal. The scope at this time was withdrawn to the stomach, adequately insufflated with air, and upon careful examination, in the antrum in the prepyloric area there was a 2 cm deep ulcer with a visible vessel and oozing identified. Initially attempted placing an Endo Clip but was not successful. Ultimately 1 in 10,000 epinephrine was injected around the visible vessel and total of 6 mL was injected with good hemostasis. Following this using a gold probe cautery was performed at the site of visible vessel with good obliteration. No bleeding identified. There are multiple erosions noted in the antrum of the stomach and biopsies were done from this area. The body, cardia and the fundus appeared normal. The scope was then withdrawn into the esophagus. The GE junction was located at 39 cm from the incisors. The esophagus appeared normal. There were no erosions or ulcerations seen and the patient tolerated the procedure well. IMPRESSION: 1. 2 cm deep antral ulcer in the prepyloric area with a visible vessel and oozing status post attempted Endo Clip placement, injection epinephrine and cautery with good hemostasis.. 2. Antral erosive gastritis. RECOMMENDATIONS: The findings of this examination were discussed with the patient. She was advised to follow with the biopsy results. she will remain on a clear liquid diet. Continue with IV Protonix 40 mg every 12 hours and monitor CBC every 12 hours.
[2018-01-13 10:03] LABS: Calcium 8.2 mg/dL (8.4-10.2); Potassium 3.6 mmol/L (3.5-5.1)
[2018-01-13] MEDS: PANTOPRAZOLE 40 MG/10 ML VIAL IVP SCH ×2 (10:28→20:36)
[2018-01-13] MEDS: SODIUM CHLORIDE 0.9% 1,000 ML IV SCH ×2 (10:29→19:08)
[2018-01-13] MEDS: buPROPion SR 100 MG TABLET.ER PO SCH ×3 (10:31→20:36)
[2018-01-13] MEDS: DORZOLAMIDE-TIMOLOL 2-0.5% DROPS 10 ML BTL BOTH EYES SCH ×2 (10:32→20:56)
--- NOTE | 2018-01-13 11:23 | CT ---
EXAMINATION TYPE: CT chest wo con DATE OF EXAM: 01/13/2018 COMPARISON: None. HISTORY: Abn CXR CT DLP: 301.4 mGycm. Automated Exposure Control for Dose Reduction was Utilized. TECHNIQUE: CT scan of the thorax is performed without IV contrast. FINDINGS: There is some minimal airspace disease in the left lingula. Lungs are otherwise clear. No p arenchymal mass is seen. There is no significant axillary, mediastinal or hilar adenopathy. There is no pleural or pericardial fluid. The heart is not enlarged. There is a bipolar pacemaker in place. Limited views of the upper abdomen are unremarkable. There is degenerative disc disease and hypertrophic spondylosis within the spine. IMPRESSION: 1. NO EVIDENCE OF PARENCHYMAL MASS LESION. 2. MINIMAL AIRSPACE DISEASE, LEFT LINGULA MAY REPRESENT SOME ATELECTASIS OR EARLY PNEUMONIA. 3. DEGENERATIVE CHANGES WITHIN THE SPINE.
[2018-01-13] MEDS ORDERED: ONDANSETRON 4 MG/2 ML VIAL IVP PRN (11:26)
[2018-01-13] MEDS: CHOLECALCIFEROL 1,000 UNIT TAB PO SCH (11:30)
[2018-01-13 12:27] VITALS: BMI 14.6
--- NOTE | 2018-01-13 13:22 | P.CNPUL ---
History of Present Illness Consult date: 01/13/18 Requesting physician: Crystal Messina Chief complaint: Weakness History of present illness: This is an 82-year-old female with multiple medical problems including hypothyroidism, bradycardia arrhythmias and history of pacemaker implantation, patient was admitted to the hospital on 01/11/2018, undergoing workup for weakness. Part of the workup included a chest x-ray which showed no significant abnormality, however the radiologist raised the possibility of a pneumonic process or possible underlying malignancy involving the lung. Hence I was asked to see the patient on consultation, patient had no active pulmonary symptoms whatsoever, I recommended a CT of the chest, and it showed that the findings that the radiologist was concerned about were mostly degenerative changes within the spine not in the lung parenchyma. The CT of the chest was done without contrast, again the patient had no pulmonary symptoms whatsoever to suggest pneumonia. I reviewed the chest x-ray and the CT of the chest, and I did not feel there was any evidence of underlying pulmonary disease. In the meantime the patient was complaining of dizziness lightheadedness, and this has been going on for the last several months. And she has been on significant amount of Motrin for symptoms of osteoarthritis. Her hemoglobin on admission was 11.0, and today the hemoglobin was noted to be 6.9. Yesterday, and while inpatient, patient had episode of epigastric discomfort and several episodes of coffee-ground emesis and apparently that was enough to drop in hemoglobin from 11-6.5. Patient was transferred to the selective care unit, and she was given 2 units of packed RBCs. Gastroenterology was consulted, and the patient underwent EGD today. She was found to have 2 cm deep antral ulcer in the prepyloric area with visible vessel and losing status noted post attempted Endo Clip placement patient had injections of epinephrine and cautery with good hemostasis. There was also evidence of antral erosive gastritis. Presently the patient seems to be doing well, and there is no evidence of active bleeding. She denies any headaches, denies any blurred vision, she does have chronic dizziness. Denies any chest pain, no cough, no wheezing, no fever, no chills, no hemoptysis. Denies any dysuria frequency or urgency. She does have history of chronic osteoarthritis, and she takes Motrin significantly for her underlying degenerative joint disease. Review of Systems 14 point review of systems were obtained, please refer to pertinent positives in HPI, otherwise remaining systems are negative Past Medical History Past Medical History: COPD, Thyroid Disorder Additional Past Medical History / Comment(s): Orthostatic hypotension, pacemaker , History of Any Multi-Drug Resistant Organisms: None Reported Past Surgical History: Heart Catheterization With Stent, Orthopedic Surgery, Tonsillectomy Additional Past Surgical History / Comment(s): left knee replacement Date of Last Stent Placement:: 2002? Past Psychological History: No Psychological Hx Reported Smoking Status: Former smoker Past Alcohol Use History: None Reported Past Drug Use History: None Reported Medications and Allergies Home Medications Medication Instructions Recorded Confirmed Type Allopurinol [Zyloprim] 300 mg PO DAILY 06/06/17 01/11/18 History Aspirin [Adult Low Dose Aspirin EC] 81 mg PO DAILY 06/06/17 01/11/18 History Cholecalciferol [Vitamin D3] 1,000 unit PO DAILY 06/06/17 01/11/18 History Levothyroxine Sodium [Synthroid] 25 mcg PO DAILY 06/06/17 01/11/18 History buPROPion SR [Wellbutrin Sr] 100 mg PO TID 06/06/17 01/11/18 History Atorvastatin [Lipitor] 20 mg PO HS 01/11/18 01/11/18 History Dorzolamide-Timolol 2%/0.5% 1 drop BOTH EYES BID 01/11/18 01/11/18 History [dorzolamide-Timolol 2%/0.5%] Latanoprost [Xalatan 0.005%] 1 drop BOTH EYES HS 01/11/18 01/11/18 History Allergies Allergy/AdvReac Type Severity Reaction Status Date / Time Penicillins Allergy Unknown Verified 06/06/17 15:04 Sulfa (Sulfonamide Allergy Unknown Verified 06/06/17 15:04 Antibiotics) Physical Exam Vitals: Vital Signs Temp Pulse Pulse Resp BP BP BP 01/13/18 11:49 71 18 01/13/18 11:48 97.0 F L 71 01/13/18 08:15 71 18 01/13/18 08:13 71 18 150/67 01/13/18 08:00 71 18 01/13/18 06:28 67 15 145/70 01/13/18 05:58 97.7 F 68 16 132/63 01/13/18 05:48 97.1 F L 69 17 108/54 01/13/18 05:37 81/48 77/50 01/13/18 05:36 97.5 F L 68 17 118/73 01/13/18 04:00 97.0 F L 76 15 01/13/18 03:56 97.0 F L 76 15 137/63 01/13/18 03:26 97.5 F L 78 16 118/58 01/13/18 03:16 97.2 F L 75 19 126/59 01/13/18 02:46 97.4 F L 80 17 01/12/18 23:00 97 F L 92 16 01/12/18 20:35 16 01/12/18 14:58 98.7 F 65 16 BP BP Pulse Ox 01/13/18 11:49 01/13/18 11:48 181/82 184/81 97 01/13/18 08:15 150/67 01/13/18 08:13 01/13/18 08:00 01/13/18 06:28 100 01/13/18 05:58 99 01/13/18 05:48 98 01/13/18 05:37 118/73 01/13/18 05:36 01/13/18 04:00 137/63 100 01/13/18 03:56 100 01/13/18 03:26 100 01/13/18 03:16 100 01/13/18 02:46 104/54 100 01/12/18 23:00 102/54 99 01/12/18 20:35 01/12/18 14:58 139/63 97 Intake and Output 01/12/18 01/13/18 01/13/18 22:59 06:59 14:59 Intake Total 1550 470 480 Balance 1550 470 480 Intake: IV 50 Intake, IV Titration 1550 60 Amount Sodium Chloride 0.9% 1, 1550 60 000 ml @ 100 mls/hr IV . Q10H [facility] Rx#:[id number] Oral 100 120 Blood Product 310 310 Rc As-1 Unit 310 [id number] Rc As-1 Unit 0 310 [id number] Other: Voiding Method Bedside Commode Toilet Toilet # Voids 2 Weight 50.349 kg 45 kg 45 kg Physical Exam: Revealed an 82-year-old female, pleasant, in no distress. Head: Atraumatic, normocephalic. HEENT:[Neck is supple.] [No neck masses.] [No thyromegaly.] [No JVD.] PERRLA, EOMI, no icterus. Chest: [Clear throughout, no crackles, no rhonchi, no wheezes.] Cardiac Exam: [Normal S1 and S2, no S3 gallop, no murmur.] Abdomen: [Soft, nontender, no megaly, no rebound, no guarding, normal bowel sounds.] Extremities: [No clubbing, no edema, no cyanosis.] Neurological Exam: [No focal neurologic deficit.] Psychiatric: Normal mood, affect and mental status examination. Lymphatics: No lymphadenopathy was appreciated. Skin: No rashes. Results - Laboratory Findings CBC and BMP: 01/13/18 09:19 01/13/18 09:19 PT/INR, D-dimer PT 11.3 sec (9.0-12.0) 01/11/18 15:06 INR 1.2 (<1.2) H 01/11/18 15:06 Abnormal lab findings: Abnormal Labs 01/11/18 01/11/18 01/11/18 15:06 15:06 15:06 RBC 3.40 L Hgb 11.0 L Hct MCV 100.1 H MCHC Lymphocytes # 0.9 L INR Sodium 131 L Chloride Carbon Dioxide 18 L BUN 50 H Creatinine 1.60 H Glucose Calcium Magnesium 1.5 L CK-MB (CK-2) 2.6 H* Total Protein 5.4 L Crossmatch 01/11/18 01/12/18 01/13/18 15:06 07:46 01:02 RBC 2.22 L Hgb 6.9 L* D Hct 22.9 L MCV 103.0 H MCHC 30.0 L Lymphocytes # INR 1.2 H Sodium 133 L Chloride Carbon Dioxide 18 L BUN 61 H Creatinine 1.35 H Glucose Calcium Magnesium CK-MB (CK-2) Total Protein Crossmatch 01/13/18 01/13/18 01/13/18 01:05 01:05 09:19 RBC Hgb Hct MCV MCHC Lymphocytes # INR Sodium Chloride 110 H 114 H Carbon Dioxide 15 L 17 L BUN 77 H 67 H Creatinine 1.30 H 1.22 H Glucose 111 H Calcium 8.2 L Magnesium CK-MB (CK-2) Total Protein Crossmatch See Detail 01/13/18 09:19 RBC 2.75 L Hgb 8.6 L D Hct 27.1 L MCV MCHC Lymphocytes # INR Sodium Chloride Carbon Dioxide BUN Creatinine Glucose Calcium Magnesium CK-MB (CK-2) Total Protein Crossmatch - Diagnostic Findings Chest x-ray: image reviewed (CT of the chest and chest x-ray were reviewed, no evidence of active disease.) Assessment and Plan Assessment: Impression: 1 acute upper GI bleeding secondary to antral ulcer status post the treatment as per gastroenterology, please refer to the operative report by Dr. Buitrago. 2 nonspecific pulmonary scarring, no active of underlying pneumonia and no evidence of pulmonary malignancy. 3 multiple comorbidities including coronary artery disease and previous stent placement, degenerative joint disease, tachybradycardia syndrome requiring pacemaker implantation, acute anemia secondary to GI blood losses. Recommendation: I fully agree with the present treatment plan as per the different consultants on the case, no other pulmonary recommendation at this point, will follow on when necessary basis. Chest x-ray and CT of the chest with both reviewed and clearly no evidence of any underlying pulmonary disease of clinical significance. Time with Patient: Greater than 30
--- NOTE | 2018-01-13 15:35 | P.PN ---
Subjective 82 old admitted secondary to intravascular depletion dehydration acute renal failure hyponatremia patient received IV fluids with improvement in creatinine from 1.6-1.3 and improvement in sodium from 131-133. Patient is comparing of significant weakness and her continued dizziness because of which I'm holding her discharged today patient was evaluated by cardiology patient has a pacemaker. Patient has a history of dizziness for a long time. Patient was to person assist when discussed with nursing staff will obtain. PT And OT consultation. Repeat basic metabolic profile tomorrow 01/13/2018 Patient had upper GI bleed hematemesis last night patient hemoglobin dropped to 6.6 it was 11 part of drop in hemoglobin is secondary to hemodilution 3 affect. Patient received 2 units of PRBC transfusion. Underwent upper GI endoscopy showed an active bleeding ulcer in the gastric antrum, patient is status post Endo Clip placement and epinephrine injection. Patient was started on proton pump inhibitor patient renal failure improved patient's creatinine is presently 1.2 sodium normalized, her lightheadedness is significantly better today Constitutional: Denied any fatigue denied any fever. Cardio vascular: denied any chest pain, palpitations Gastrointestinal denied any nausea vomiting Pulmonary: Denied any shortness of breath cough Neurologic denied any new focal deficits Objective - Vital Signs Vital signs: Vital Signs Temp 97.0 F L 01/13/18 11:48 Pulse 71 01/13/18 11:49 Resp 18 01/13/18 11:49 BP 181/82 01/13/18 11:48 Pulse Ox 97 01/13/18 11:48 Intake & Output 01/12/18 01/13/18 01/13/18 18:59 06:59 18:59 Intake Total 1250 1270 480 Balance 1250 1270 480 Weight 50.349 kg 45 kg 45 kg Intake: IV 50 Intake, IV Titration 1250 860 Amount Sodium Chloride 0.9% 1, 750 860 000 ml @ 100 mls/hr IV . Q10H [facility] Rx#:[id number] Sodium Chloride 0.9% 500 500 ml @ 999 mls/hr IV .Q31M [facility] Rx#:[id number] Oral 100 120 Blood Product 310 310 Rc As-1 Unit 310 [id number] Rc As-1 Unit 0 310 [id number] Other: Voiding Method Bedside Commode Toilet Toilet # Voids 2 # Bowel Movements 1 - Exam PHYSICAL EXAMINATION: GENERAL: The patient is alert and oriented x3, not in any acute distress. Well developed, well nourished. HEENT: Pupils are round and equally reacting to light. EOMI. No scleral icterus. Does have conjunctival pallor. Normocephalic, atraumatic. No pharyngeal erythema. No thyromegaly. CARDIOVASCULAR: S1 and S2 present. No murmurs, rubs, or gallops. PULMONARY: Chest is clear to auscultation, no wheezing or crackles. ABDOMEN: Soft, nontender, nondistended, normoactive bowel sounds. No palpable organomegaly. MUSCULOSKELETAL: No joint swelling or deformity. EXTREMITIES: No cyanosis, clubbing, or pedal edema. NEUROLOGICAL: Gross neurological examination did not reveal any focal deficits. SKIN: No rashes. - Labs CBC & Chem 7: 01/13/18 09:19 01/13/18 09:19 Labs: Abnormal Lab Results - Last 24 Hours (Table) 01/13/18 01/13/18 01/13/18 Range/Units 01:02 01:05 01:05 RBC 2.22 L (3.80-5.40) m/uL Hgb 6.9 L* D (11.4-16.0) gm/dL Hct 22.9 L (34.0-46.0) % MCV 103.0 H (80.0-100.0) fL MCHC 30.0 L (31.0-37.0) g/dL Chloride 110 H (98-107) mmol/L Carbon Dioxide 15 L (22-30) mmol/L BUN 77 H (7-17) mg/dL Creatinine 1.30 H (0.52-1.04) mg/dL Glucose 111 H (74-99) mg/dL Calcium (8.4-10.2) mg/dL Crossmatch See Detail 01/13/18 01/13/18 Range/Units 09:19 09:19 RBC 2.75 L (3.80-5.40) m/uL Hgb 8.6 L D (11.4-16.0) gm/dL Hct 27.1 L (34.0-46.0) % MCV (80.0-100.0) fL MCHC (31.0-37.0) g/dL Chloride 114 H (98-107) mmol/L Carbon Dioxide 17 L (22-30) mmol/L BUN 67 H (7-17) mg/dL Creatinine 1.22 H (0.52-1.04) mg/dL Glucose (74-99) mg/dL Calcium 8.2 L (8.4-10.2) mg/dL Crossmatch Microbiology - Last 24 Hours (Table) 01/11/18 22:50 Blood Culture - Preliminary Blood No Growth after 24 hours Assessment and Plan Plan: -Dizziness: Secondary to intravascular depletion dehydration patient is on IV fluids will recheck the basic metabolic profile tomorrow. Patient is a pacemaker which will be in progress patient presently has basic rhythm 100%. Patient dizziness improved after blood transfusion -Acute upper GI bleed: Secondary to peptic ulcer disease, management as mentioned above status post the transfusion 2 units monitored overnight for any GI bleed possibility of discharge tomorrow -Hypovolemic hyponatremia: IV fluids as mentioned above, improved -Hypomagnesemia: Replace magnesium -Acute renal failure secondary to intravascular depletion: Prerenal azotemia IV fluids as mentioned above -Macrocytic anemia: Workup as an outpatient-etiology is not known -Mild anion gap and non-anion gap metabolic acidosis: Secondary to uremia and the hyperchloremia -Ruled out pneumonia. -Hypothyroidism TSH within normal limits continue home dose of levothyroxine.
[2018-01-13 16:28] LABS: Basophils % (A) 0 %; Eosinophils # (A) 0.1 k/uL (0-0.7); Eosinophils % (A) 1 %; HCT 28.1 % (34.0-46.0); Hypochromasia Slight; Lymphocytes # (A) 1.2 k/uL (1.0-4.8); Lymphocytes % (A) 17 %; MCH 31.3 pg (25.0-35.0); Macrocytosis Slight; Mean Platelet Volume 7.8; Monocytes # (A) 0.4 k/uL (0-1.0); Monocytes % (A) 6 %; Neutrophils # (A) 5.2 k/uL (1.3-7.7); Neutrophils % (A) 74 %; Platelet Count 146 k/uL (150-450); RBC 2.87 m/uL (3.80-5.40); RDW 15.4 % (11.5-15.5)
[2018-01-13] MEDS: ATORVASTATIN 20 MG TAB PO SCH (20:36)
[2018-01-13] MEDS: LATANOPROST 0.005% OPHTH DROPS 2.5 ML BTL BOTH EYES SCH (20:56)
[2018-01-14] MEDS: LEVOTHYROXINE 25 MCG TAB PO SCH (06:40)
[2018-01-14] MEDS: SODIUM CHLORIDE 0.9% 1,000 ML IV SCH ×2 (06:40→17:46)
[2018-01-14 06:59] LABS: Basophils % (A) 1 %; Eosinophils # (A) 0.2 k/uL (0-0.7); Eosinophils % (A) 3 %; HCT 25.9 % (34.0-46.0); HGB 8.2 gm/dL (11.4-16.0); Hypochromasia Slight; Lymphocytes # (A) 1.3 k/uL (1.0-4.8); Lymphocytes % (A) 18 %; MCH 30.9 pg (25.0-35.0); MCHC 31.8 g/dL (31.0-37.0); MCV 97.2 fL (80.0-100.0); Mean Platelet Volume 7.5; Monocytes # (A) 0.4 k/uL (0-1.0); Monocytes % (A) 6 %; Neutrophils # (A) 5.1 k/uL (1.3-7.7); Neutrophils % (A) 71 %; Platelet Count 186 k/uL (150-450); RBC 2.67 m/uL (3.80-5.40); RDW 15.4 % (11.5-15.5); WBC 7.2 k/uL (3.8-10.6)
[2018-01-14] MEDS: buPROPion SR 100 MG TABLET.ER PO SCH ×3 (09:04→21:22)
[2018-01-14] MEDS: PANTOPRAZOLE 40 MG/10 ML VIAL IVP SCH ×2 (09:04→21:22)
[2018-01-14] MEDS: DORZOLAMIDE-TIMOLOL 2-0.5% DROPS 10 ML BTL BOTH EYES SCH ×2 (09:13→21:22)
[2018-01-14] MEDS: CHOLECALCIFEROL 1,000 UNIT TAB PO SCH (11:50)
--- NOTE | 2018-01-14 12:34 | PN ---
PROGRESS NOTE DATE OF SERVICE: January 14. Patient is an 82-year-old pleasant white female admitted to the hospital with dizziness and while in the hospital, had upper GI bleed. She had an upper endoscopy done yesterday which showed a 2 cm deep ulcer in the antrum with active bleeding that was cauterized. The patient doing well. No further episodes of bleeding. She received 2 units of blood transfusion yesterday for hemoglobin of 6.5. This morning, hemoglobin is 8.3. She is asymptomatic. PHYSICAL EXAMINATION: Appears comfortable. No apparent distress. Vital signs stable. Blood pressure is 130/86, pulse rate 82 per minute and a temperature 97. HEENT examination unremarkable. Conjunctivae pink. Sclerae anicteric. Oral cavity no lesions. NECK: No JVD or lymph node enlargement. Chest was clear to auscultation. HEART: Regular rate and rhythm. ABDOMEN: Soft. Bowel sounds are positive. No organomegaly. Extremities: No pedal edema. Skin no rashes. Neuro: She is alert and oriented x3. No focal deficits. LABS: Done today hemoglobin is 8.2, WBC 7.2, platelets are normal. IMPRESSION: Acute upper gastrointestinal bleed status post EGD yesterday which revealed a 2 cm antral ulcer that was cauterized. She received 2 units of blood transfusion for hemoglobin of 6.9 and today it is 8.2 g/dL. Clinically no further bleeding. RECOMMENDATIONS: 1. Continue with clear liquids. 2. Continue IV Protonix 40 mg q.12 hours. 3. CBC tomorrow morning. 4. Thank you for this consultation. MMODL / IJN: [id number] /
--- NOTE | 2018-01-14 14:49 | P.PN ---
Subjective 82 old admitted secondary to intravascular depletion dehydration acute renal failure hyponatremia patient received IV fluids with improvement in creatinine from 1.6-1.3 and improvement in sodium from 131-133. Patient is comparing of significant weakness and her continued dizziness because of which I'm holding her discharged today patient was evaluated by cardiology patient has a pacemaker. Patient has a history of dizziness for a long time. Patient was to person assist when discussed with nursing staff will obtain. PT And OT consultation. Repeat basic metabolic profile tomorrow 01/13/2018 Patient had upper GI bleed hematemesis last night patient hemoglobin dropped to 6.6 it was 11 part of drop in hemoglobin is secondary to hemodilution 3 affect. Patient received 2 units of PRBC transfusion. Underwent upper GI endoscopy showed an active bleeding ulcer in the gastric antrum, patient is status post Endo Clip placement and epinephrine injection. Patient was started on proton pump inhibitor patient renal failure improved patient's creatinine is presently 1.2 sodium normalized, her lightheadedness is significantly better today 01/14/2018 She is hemoglobin remained stable patient remains quite weak because of which will get both PT and OT consultation no signs or symptoms of GI bleed at this time. Constitutional: Denied any fatigue denied any fever. Cardio vascular: denied any chest pain, palpitations Gastrointestinal denied any nausea vomiting Pulmonary: Denied any shortness of breath cough Neurologic denied any new focal deficits Objective - Vital Signs Vital signs: Vital Signs Temp 96.0 F L 01/14/18 11:56 Pulse 64 01/14/18 11:56 Resp 17 01/14/18 11:56 BP 139/65 01/14/18 11:56 Pulse Ox 92 L 01/14/18 11:56 Intake & Output 01/13/18 01/14/18 01/14/18 18:59 06:59 18:59 Intake Total 720 1280 720 Output Total 902 663 7989 Balance -180 480 -680 Weight 45 kg 50.2 kg Intake: IV 50 800 Invasive Line 1 800 Oral 360 480 720 Blood Product 310 Rc As-1 Unit 310 [id number] Output: Urine 048 660 6917 Other: Voiding Method Toilet Bedside Commode Bedside Commode # Voids 1 # Bowel Movements 1 - Exam PHYSICAL EXAMINATION: GENERAL: The patient is alert and oriented x3, not in any acute distress. Well developed, well nourished. HEENT: Pupils are round and equally reacting to light. EOMI. No scleral icterus. Does have conjunctival pallor. Normocephalic, atraumatic. No pharyngeal erythema. No thyromegaly. CARDIOVASCULAR: S1 and S2 present. No murmurs, rubs, or gallops. PULMONARY: Chest is clear to auscultation, no wheezing or crackles. ABDOMEN: Soft, nontender, nondistended, normoactive bowel sounds. No palpable organomegaly. MUSCULOSKELETAL: No joint swelling or deformity. EXTREMITIES: No cyanosis, clubbing, or pedal edema. NEUROLOGICAL: Gross neurological examination did not reveal any focal deficits. SKIN: No rashes. - Labs CBC & Chem 7: 01/14/18 06:28 01/13/18 09:19 Labs: Abnormal Lab Results - Last 24 Hours (Table) 01/13/18 01/14/18 Range/Units 15:31 06:28 RBC 2.87 L 2.67 L (3.80-5.40) m/uL Hgb 9.0 L 8.2 L (11.4-16.0) gm/dL Hct 28.1 L 25.9 L (34.0-46.0) % Plt Count 146 L (150-450) k/uL Microbiology - Last 24 Hours (Table) 01/11/18 22:50 Blood Culture - Preliminary Blood No Growth after 48 hours Assessment and Plan Plan: -Dizziness: Secondary to intravascular depletion dehydration patient is on IV fluids will recheck the basic metabolic profile tomorrow. Patient is a pacemaker which will be in progress patient presently has basic rhythm 100%. Patient dizziness improved after blood transfusion -Acute upper GI bleed: Secondary to peptic ulcer disease, management as mentioned above status post the transfusion 2 units monitored overnight for any GI bleed possibility of discharge tomorrow -Hypovolemic hyponatremia: IV fluids as mentioned above, improved -Hypomagnesemia: Replace magnesium -Acute renal failure secondary to intravascular depletion: Prerenal azotemia IV fluids as mentioned above -Macrocytic anemia: Workup as an outpatient-etiology is not known -Mild anion gap and non-anion gap metabolic acidosis: Secondary to uremia and the hyperchloremia -Ruled out pneumonia. -Hypothyroidism TSH within normal limits continue home dose of levothyroxine.
[2018-01-14] MEDS: ATORVASTATIN 20 MG TAB PO SCH (21:21)
[2018-01-14] MEDS: LATANOPROST 0.005% OPHTH DROPS 2.5 ML BTL BOTH EYES SCH (21:22)
[2018-01-15] MEDS: SODIUM CHLORIDE 0.9% 1,000 ML IV SCH ×2 (00:33→02:35)
[2018-01-15] MEDS: LEVOTHYROXINE 25 MCG TAB PO SCH (06:22)
[2018-01-15 07:57] VITALS: RESP 16
[2018-01-15 08:09] LABS: Calcium 8.2 mg/dL (8.4-10.2); Potassium 3.2 mmol/L (3.5-5.1)
[2018-01-15 08:15] LABS: HCT 24.9 % (34.0-46.0); HGB 7.9 gm/dL (11.4-16.0); Hypochromasia Slight; MCH 31.1 pg (25.0-35.0); MCHC 31.7 g/dL (31.0-37.0); MCV 98.2 fL (80.0-100.0); Macrocytosis Slight; Mean Platelet Volume 7.6; Platelet Count 180 k/uL (150-450); RBC 2.53 m/uL (3.80-5.40); RDW 15.3 % (11.5-15.5); WBC 7.9 k/uL (3.8-10.6)
[2018-01-15] MEDS: DORZOLAMIDE-TIMOLOL 2-0.5% DROPS 10 ML BTL BOTH EYES SCH (08:15)
[2018-01-15] MEDS: PANTOPRAZOLE 40 MG/10 ML VIAL IVP SCH (08:15)
[2018-01-15] MEDS: buPROPion SR 100 MG TABLET.ER PO SCH ×2 (08:15→16:16)
[2018-01-15] MEDS ORDERED: Potassium Replacement Protocol 1 EACH MISC MISCELLANE PRN (10:30)
[2018-01-15] MEDS ORDERED: Magnesium Replacement Protocol 1 EACH MISC MISCELLANE PRN (10:31)
[2018-01-15] MEDS: CHOLECALCIFEROL 1,000 UNIT TAB PO SCH (11:24)
[2018-01-15] MEDS ORDERED: POTASSIUM CHLORIDE ER 20 MEQ TAB.ER PO STA (12:04)
--- NOTE | 2018-01-15 12:19 | P.DS ---
Providers Date of admission: 01/12/18 14:20 Attending physician: Crystal Messina Consults: 01/11/18 16:55 Consult Physician Routine Consulting Provider: Edgardo Jones Consult Reason/Comments: dizziness, pacemaker Do you want consulting provider notified?: Yes 01/13/18 01:53 Consult Physician Urgent Consulting Provider: Cindy Berg Consult Reason/Comments: critical lab Do you want consulting provider notified?: Yes 01/13/18 01:55 Consult Physician Urgent Consulting Provider: Eliseo Cavazos Consult Reason/Comments: GI Bleed Do you want consulting provider notified?: Yes Primary care physician: Physician Nonsta Hospital Course: 82 old admitted secondary to intravascular depletion dehydration acute renal failure hyponatremia patient received IV fluids with improvement in creatinine from 1.6-1.3 and improvement in sodium from 131-133. Patient is comparing of significant weakness and her continued dizziness because of which I'm holding her discharged today patient was evaluated by cardiology patient has a pacemaker. Patient has a history of dizziness for a long time. Patient was to person assist when discussed with nursing staff will obtain. PT And OT consultation. Repeat basic metabolic profile tomorrow 01/13/2018 Patient had upper GI bleed hematemesis last night patient hemoglobin dropped to 6.6 it was 11 part of drop in hemoglobin is secondary to hemodilution 3 affect. Patient received 2 units of PRBC transfusion. Underwent upper GI endoscopy showed an active bleeding ulcer in the gastric antrum, patient is status post Endo Clip placement and epinephrine injection. Patient was started on proton pump inhibitor patient renal failure improved patient's creatinine is presently 1.2 sodium normalized, her lightheadedness is significantly better today 01/14/2018 She is hemoglobin remained stable patient remains quite weak because of which will get both PT and OT consultation no signs or symptoms of GI bleed at this time. 01/15/2018 Patient's hemoglobin remained stable patient doesn't have any clinical signs or symptoms of acute GI bleed at this time patient will be discharged with Prilosec for a month to subacute rehabilitation patient is quite weak. Patient dizziness significant improved. Patient has this dizziness which I believe multifactorial mostly secondary to dehydration may have autonomic dysfunction as well which is contributing to her dizziness. Patient is being discharged to subacute rehabilitation today. Creatinine improved her creatinine is around 0.9 today. Hyponatremia to resolve the patient is hypomagnesemic and hypokalemic both of which will be supplemented patient will be discharged today. PHYSICAL EXAMINATION: GENERAL: The patient is alert and oriented x3, not in any acute distress. Well developed, well nourished. HEENT: Pupils are round and equally reacting to light. EOMI. No scleral icterus. Does have conjunctival pallor. Normocephalic, atraumatic. No pharyngeal erythema. No thyromegaly. CARDIOVASCULAR: S1 and S2 present. No murmurs, rubs, or gallops. PULMONARY: Chest is clear to auscultation, no wheezing or crackles. ABDOMEN: Soft, nontender, nondistended, normoactive bowel sounds. No palpable organomegaly. MUSCULOSKELETAL: No joint swelling or deformity. EXTREMITIES: No cyanosis, clubbing, or pedal edema. NEUROLOGICAL: Gross neurological examination did not reveal any focal deficits. SKIN: No rashes. Assessment and Plan Plan: -Dizziness: Secondary to intravascular depletion dehydration, GI bleed improved now patient may have a competent of autonomic dysfunction area dizziness did improve -Acute upper GI bleed: Secondary to peptic ulcer disease, management as mentioned above status post the transfusion 2 units patient has peptic ulcer disease patient is status post Endo Clip -Hypovolemic hyponatremia: improved -Hypomagnesemia: Replace magnesium -Acute renal failure secondary to intravascular depletion: Prerenal azotemia improved now her creatinine is 0.9 now -Macrocytic anemia: Workup as an outpatient-etiology is not known -Mild anion gap and non-anion gap metabolic acidosis: Secondary to uremia and the hyperchloremia -Ruled out pneumonia. -Hypothyroidism TSH within normal limits continue home dose of levothyroxine. Patient Condition at Discharge: Fair Plan - Discharge Summary New Discharge Prescriptions: New Magnesium Oxide [Magox 400] 400 mg PO DAILY #30 tablet Omeprazole [PriLOSEC] 40 mg PO AC-BRKFST #30 capsule. Continue buPROPion SR [Wellbutrin SR] 100 mg PO TID Aspirin [Adult Low Dose Aspirin EC] 81 mg PO DAILY Levothyroxine Sodium [Synthroid] 25 mcg PO DAILY Cholecalciferol [Vitamin D3] 1,000 unit PO DAILY Allopurinol [Zyloprim] 300 mg PO DAILY Latanoprost [Xalatan 0.005%] 1 drop BOTH EYES HS Dorzolamide-Timolol 2%/0.5% [dorzolamide-Timolol 2%/0.5%] 1 drop BOTH EYES BID Atorvastatin [Lipitor] 20 mg PO HS Discharge Medication List Allopurinol [Zyloprim] 300 mg PO DAILY 06/06/17 [History] Aspirin [Adult Low Dose Aspirin EC] 81 mg PO DAILY 06/06/17 [History] Cholecalciferol [Vitamin D3] 1,000 unit PO DAILY 06/06/17 [History] Levothyroxine Sodium [Synthroid] 25 mcg PO DAILY 06/06/17 [History] buPROPion SR [Wellbutrin SR] 100 mg PO TID 06/06/17 [History] Atorvastatin [Lipitor] 20 mg PO HS 01/11/18 [History] Dorzolamide-Timolol 2%/0.5% [dorzolamide-Timolol 2%/0.5%] 1 drop BOTH EYES BID 01/11/18 [History] Latanoprost [Xalatan 0.005%] 1 drop BOTH EYES HS 01/11/18 [History] Magnesium Oxide [Magox 400] 400 mg PO DAILY #30 tablet 01/15/18 [Rx] Omeprazole [PriLOSEC] 40 mg PO AC-BRKFST #30 capsule. 01/15/18 [Rx] Follow up Appointment(s)/Referral(s): Rai Pugh MD [STAFF PHYSICIAN] - 1 Week Nonstaff,Physician [Primary Care Provider] - 3 Days Guille Gomez MD [REFERRING] - 01/19/18 12:45 pm Patient Instructions/Handouts: Hyponatremia (DC) Activity/Diet/Wound Care/Special Instructions: Low fat diet. Up with assist, fall precautions. Discharge Disposition: TRANSFER TO SNF/ECF
[2018-01-15] MEDS: MAGNESIUM SULFATE-D5W PMX 1 GM in DEXTROSE/WATER 1 100ML.BAG IVPB SCH ×3 (12:40→14:34)
[2018-01-15 14:56] VITALS: BP 140/64; PULSE 64; TEMP 97
[2018-01-15 16:47] LABS: Magnesium 2.2 mg/dL (1.6-2.3); Potassium 3.9 mmol/L (3.5-5.1)
--- NOTE | 2018-01-15 20:08 | PN ---
PROGRESS NOTE The patient is an 82-year-old pleasant white female admitted to the hospital with acute upper GI bleed. She underwent upper endoscopy 2 days ago and was noted to have 2 cm antral ulcer with active bleeding that was injection and cauterized. The patient since then has been stable. No further bleeding. She did . PHYSICAL EXAMINATION: Appears comfortable, no apparent distress. VITAL SIGNS: Stable. Blood pressure is 128/54, pulse 87, temperature 97.2. HEENT: Examination unremarkable. Conjunctivae pink. Sclerae anicteric. Oral cavity, no lesions. No JVD or lymph node enlargement. Chest was cleat to auscultation. HEART: Regular rate and rhythm. Abdomen is soft. Bowel sounds are positive. No organomegaly. EXTREMITIES: No pedal edema. NEUROLOGIC: Alert and oriented x3. LABS: BUN and creatinine are 16 and 0.9 respectively. IMPRESSION: Acute upper GI bleed secondary to large gastric antral ulcer, status post EGD 2 days ago. The patient currently hemodynamically stable. No further bleeding. Hemoglobin is 7.9 g/dL. RECOMMENDATION: 1. 40 mg twice daily. 2. Advance diet as tolerated. 3. She can be discharged home today with outpatient follow in 2 to 3 weeks. MMODL / IJN: [id number] /
--- NOTE | 2018-01-17 09:09 | CDI ---
Last Revision, May 2017 Documentation Clarification Form Date: 01/15/18 From: Becky Mccarthy Phone: If you have a question regarding this query, please contact Petra Ocampo at [phone] between 8am and 5pm. Admit Date: 01/12/2018 2:20:00 PM Patient Name: Yoli Goddard Visit Number: [id number] Discharge Date: 01/15/18 ATTENTION: The Clinical Documentation Specialists (CDI) and [facility] Coding Staff appreciate your assistance in clarifying documentation. Please respond to the clarification below the line at the bottom and electronically sign. The CDI & [facility] Coding staff will review the response and follow-up if needed. Please note: Queries are made part of the Legal Health Record. If you have any questions, please contact the author of this message via ITS. Dr. Crystal Messina Patient was admitted due to pre-syncope and acute upper GI bleed. Patient history/risk factors: Patient has a history of COPD, CAD and CHF. Clinical Indicators: Upper Gi bleeding, anemia Lab findings: Hgb/Hct dropped to 6.9 and 22.9 on 01/13 EGD findings: 1.2 cm antral ulcer with bleeding Treatment: EGD with cautery and epinephrine injection, IV Protonix In your professional opinion, can you please clarify if the ulcer was? Acute Chronic Other, please specify Unable to determine Chronic MTDD
== END 2018-01-15 17:40 | DRG 682 ==
LOC: EC 14:21 → INTOOBSV 16:38 → 4MS4W 16:38 → OBSVTOIN 01-12 14:20 → 6SEL 01-13 01:53 → 4MS4W 01-14 18:39
PROVIDERS: ADMIT Internal Medicine; ATTEND Internal Medicine
PROC: 0W3P8ZZ Control Bleeding in Gastrointestinal Tract, Via Natural or Artificial Opening Endoscopic (ICD-10-PCS; principal; 2018-01-13 09:00)
PROC: 3E0G8GC Introduction of Other Therapeutic Substance into Upper GI, Via Natural or Artificial Opening Endoscopic (ICD-10-PCS; 2018-01-13 09:00)
PROC: 0DB78ZX Excision of Stomach, Pylorus, Via Natural or Artificial Opening Endoscopic, Diagnostic (ICD-10-PCS; 2018-01-13 09:00)
DX: N17.9 Acute kidney failure, unspecified (principal); K25.4 Chronic or unspecified gastric ulcer with hemorrhage; E87.1 Hypo-osmolality and hyponatremia; E87.2 Acidosis; D62 Acute posthemorrhagic anemia; E03.9 Hypothyroidism, unspecified; E83.42 Hypomagnesemia; E86.0 Dehydration; E87.6 Hypokalemia; I25.10 Atherosclerotic heart disease of native coronary artery without angina pectoris; I50.9 Heart failure, unspecified; J44.9 Chronic obstructive pulmonary disease, unspecified; M19.90 Unspecified osteoarthritis, unspecified site; R79.89 Other specified abnormal findings of blood chemistry; H40.9 Unspecified glaucoma; E78.5 Hyperlipidemia, unspecified; E86.9 Volume depletion, unspecified; Z79.82 Long term (current) use of aspirin; Z79.890 Hormone replacement therapy; Z79.899 Other long term (current) drug therapy; Z88.0 Allergy status to penicillin; Z88.2 Allergy status to sulfonamides; Z96.652 Presence of left artificial knee joint; Z95.5 Presence of coronary angioplasty implant and graft; Z95.0 Presence of cardiac pacemaker; Z87.891 Personal history of nicotine dependence
CPT/HCPCS: 36415; 43239; 43243; 43255; 43270; 71046; 71250; 80048; 80053; 81003; 82271; 82550; 82553; 83605; 83735; 83880; 84132; 84443; 84484; 85025; 85027; 85610; 85730; 86850; 86900; 86901; 86920; 87040; 88305; 93005; 96361; 96365; 99285

== ENCOUNTER 2018-05-03 20:24 | Emergency (ER) | payer MEDICARE, BC ==
[2018-05-03 20:34] VITALS: BP 165/76; PULSE 83; RESP 16; TEMP 98.1
--- NOTE | 2018-05-03 20:41 | ED ---
Fall HPI - General Chief Complaint: Fall Stated Complaint: FALL Time Seen by Provider: 05/03/18 20:26 Source: patient, EMS Mode of arrival: EMS - History of Present Illness Initial Comments: This is an 83-year-old female the ER status post fall. Mechanical in nature fall forward hitting head with mild skin tear to leg. Denies loss of consciousness no blood thinners Complaint: fall -: days(s) Fall From: standing When Fall Occurred: unsure Fall Witnessed: no Place Fall Occurred: home Loss of Consciousness: none Prolonged Down Time?: no Symptoms Prior to Fall: none Location: head Location - Extremities: Right: Leg Severity: mild Severity scale (1-10): 1 Quality: aching Context: tripped/slipped Associated Symptoms: denies - Related Data Home Medications Medication Instructions Recorded Confirmed Allopurinol [Zyloprim] 300 mg PO DAILY 06/06/17 05/03/18 Aspirin [Adult Low Dose Aspirin EC] 81 mg PO DAILY 06/06/17 05/03/18 Cholecalciferol [Vitamin D3] 1,000 unit PO DAILY 06/06/17 05/03/18 Levothyroxine Sodium [Synthroid] 25 mcg PO DAILY 06/06/17 05/03/18 buPROPion SR [Wellbutrin SR] 100 mg PO Q12H 06/06/17 05/03/18 Atorvastatin [Lipitor] 20 mg PO HS 01/11/18 05/03/18 Dorzolamide-Timol 2.23%/0.68% 1 drop BOTH EYES BID 01/11/18 05/03/18 [Cosopt] Latanoprost [Xalatan 0.005%] 1 drop BOTH EYES HS 01/11/18 05/03/18 Acetaminophen Tab [Tylenol Tab] 650 mg PO Q4H PRN 05/03/18 05/03/18 Ammonium Lactate Cream [Lac-Hydrin 1 applic TOPICAL BID 05/03/18 05/03/18 12% Cream] Diclofenac Sodium Gel [Voltaren 2 gm TOPICAL BID 05/03/18 05/03/18 Gel] Ferrous Sulfate [Feosol] 325 mg PO HS 05/03/18 05/03/18 Lactose-Reduced Food [Ensure Plus] 1 can PO TID 05/03/18 05/03/18 Omeprazole [PriLOSEC] 40 mg PO DAILY 05/03/18 05/03/18 Sennosides [Senna] 8.6 mg PO BID 05/03/18 05/03/18 Timolol Maleate/Pf [Timoptic 0.25% 1 drop BOTH EYES BID 05/03/18 05/03/18 Ocudose] Previous Rx's Medication Instructions Recorded Magnesium Oxide [Magox 400] 400 mg PO DAILY #30 tablet 01/15/18 Allergies Allergy/AdvReac Type Severity Reaction Status Date / Time Penicillins Allergy Unknown Verified 05/03/18 21:10 Sulfa (Sulfonamide Allergy Unknown Verified 05/03/18 21:10 Antibiotics) Review of Systems ROS Statement: Those systems with pertinent positive or pertinent negative responses have been documented in the HPI. ROS Other: All systems not noted in ROS Statement are negative. Past Medical History Past Medical History: COPD, Thyroid Disorder Additional Past Medical History / Comment(s): Orthostatic hypotension, pacemaker , History of Any Multi-Drug Resistant Organisms: None Reported Past Surgical History: Heart Catheterization With Stent, Orthopedic Surgery, Tonsillectomy Additional Past Surgical History / Comment(s): left knee replacement Date of Last Stent Placement:: 2002? Past Psychological History: No Psychological Hx Reported Smoking Status: Former smoker Past Alcohol Use History: None Reported Past Drug Use History: None Reported General Exam - General Exam Comments Initial Comments: 1 cm skin laceration no repair needed General appearance: alert, in no apparent distress Head exam: Present: atraumatic, normocephalic, normal inspection Eye exam: Present: normal appearance, PERRL, EOMI. Absent: scleral icterus, conjunctival injection, periorbital swelling ENT exam: Present: normal exam, mucous membranes moist Neck exam: Present: normal inspection. Absent: tenderness, meningismus, lymphadenopathy Respiratory exam: Present: normal lung sounds bilaterally. Absent: respiratory distress, wheezes, rales, rhonchi, stridor Cardiovascular Exam: Present: regular rate, normal rhythm, normal heart sounds. Absent: systolic murmur, diastolic murmur, rubs, gallop, clicks GI/Abdominal exam: Present: soft, normal bowel sounds. Absent: distended, tenderness, guarding, rebound, rigid Extremities exam: Present: normal inspection, full ROM, normal capillary refill. Absent: tenderness, pedal edema, joint swelling, calf tenderness Back exam: Present: normal inspection Neurological exam: Present: alert, oriented X3, CN II-XII intact Psychiatric exam: Present: normal affect, normal mood Skin exam: Present: warm, dry, intact, normal color. Absent: rash Course Vital Signs 05/03/18 05/03/18 20:27 21:00 Temperature 98.1 F Pulse Rate 83 Respiratory 16 Rate Blood Pressure 165/76 165/76 O2 Sat by Pulse 98 Oximetry Medical Decision Making - Medical Decision Making 83 female the ER for evaluation. Patient has skin tear with no need for repair , CT chest pain C-spine negative for acute disease - Radiology Data Radiology results: report reviewed (CT brain is negative for acute disease C- spine negative for traumatic injury), image reviewed Disposition Clinical Impression: Fall, Head injury, Skin tear Disposition: HOME SELF-CARE Condition: Good Instructions: Fall Prevention for Older Adults (ED), Head Injury (ED), Skin Tear (ED) Is patient prescribed a controlled substance at d/c from ED?: No Referrals: Rai Pugh MD [Primary Care Provider] - 1-2 days
--- NOTE | 2018-05-03 21:30 | CT ---
EXAMINATION TYPE: CT brain lucille wo con DATE OF EXAM: 05/03/2018 COMPARISON: 06/06/2017 HISTORY: Fall. CT DLP: 1240.3 mGycm Automated exposure control for dose reduction was used. TECHNIQUE: CT scan of the head and cervical spine are performed without contrast. FINDINGS: There is cerebral cortical atrophy. There is no mass effect nor midline shift. There is n o sign of intracranial hemorrhage. There is large left frontal scalp hematoma. There is extensive opa cification of the frontal sinus. The inner table is eroded. The cervical vertebra have fairly normal alignment. There is extensive spondylotic changes throughout the cervical spine. The skull base is intact. There is marked thickening and calcification in the tr ansverse ligament at the level of the odontoid process. At C7-T1 there is a few millimeter anterior s ubluxation deformity. I see no fracture. There is multilevel facet arthropathy. IMPRESSION: Cerebral atrophy. No acute intracranial abnormality. Left frontal acute scalp hematoma. Chronic front al sinusitis that could relate to a mucocele. This is nonspecific significantly different than old CT scan. Multilevel spondylotic changes in the cervical spine. Spine appears stable compared to old exam. No f racture.
[2018-05-03] MEDS ORDERED: ACETAMINOPHEN TAB 325 MG TAB PO STA (21:38)
== END 2018-05-03 23:38 | disposition home or self-care (01) ==
LOC: EC 20:24
DX: S81.811A Laceration without foreign body, right lower leg, initial encounter (principal); S09.90XA Unspecified injury of head, initial encounter; E07.9 Disorder of thyroid, unspecified; Z95.0 Presence of cardiac pacemaker; Z95.5 Presence of coronary angioplasty implant and graft; Z96.652 Presence of left artificial knee joint; Z98.890 Other specified postprocedural states; Z87.891 Personal history of nicotine dependence; Z79.1 Long term (current) use of non-steroidal anti-inflammatories (NSAID); Z79.82 Long term (current) use of aspirin; Z79.899 Other long term (current) drug therapy; Z88.0 Allergy status to penicillin; Z88.2 Allergy status to sulfonamides; W01.10XA Fall on same level from slipping, tripping and stumbling with subsequent striking against unspecified object, initial encounter; Y92.009 Unspecified place in unspecified non-institutional (private) residence as the place of occurrence of the external cause
CPT/HCPCS: 70450; 72125; 99284

== ENCOUNTER → 2018-05-07 | Outpatient (CLI) | payer MEDICARE, BC ==
--- NOTE | 2018-05-07 11:14 | US ---
EXAMINATION TYPE: US kidneys/renal and bladder DATE OF EXAM: 05/07/2018 COMPARISON: Prior CT chest 01/13/2018 CLINICAL HISTORY: N18.3 Chronic kidney disease stage 3. Patient states no pain. CKD. EXAM MEASUREMENTS: Right Kidney: 7.7 x 3.3 x 3.1 cm Left Kidney: 8.6 x 3.7 x 4.1 cm Right Kidney: Appears smaller in size compared to contralateral kidney. Prominent pyramids Left Kidney: Prominent pyramids Bladder: mildly distended Bilateral Jets not seen IMPRESSION: Findings suggesting underlying medical renal disease. Renal sizes as described.
== END | disposition home or self-care (01) ==
LOC: RADUSWWP 08:13
PROVIDERS: ATTEND Internal Medicine Nephrology
DX: N18.3 Chronic kidney disease, stage 3 (moderate) (principal)
CPT/HCPCS: 76770

== ENCOUNTER 2018-06-06 11:31 | Emergency (ER) | payer MEDICARE, BC ==
[2018-06-06] MEDS ORDERED: DIPH,PERTUS(ACELL)TETVAC-LF 0.5 ML VIAL IM ONE (11:49)
--- NOTE | 2018-06-06 11:59 | ED ---
General Adult HPI - General Chief complaint: Fall Stated complaint: Fall Time Seen by Provider: 06/06/18 11:35 Source: EMS, RN notes reviewed Mode of arrival: EMS Limitations: no limitations - History of Present Illness Initial comments: This is an 83-year-old female who presents emergency department after she had fell forward out of her wheelchair. Patient already had a hematoma on her forehead from what EMS is told me. Patient fell and hit that same area and it was bleeding and wrapped by first responders. Patient complains of some facial tenderness under her left eye and complains of pain at the site of hematoma. Patient denies being in any thinners patient denies having had a tetanus recently. Patient denies neck pain she is in c-collar. Patient denies any shoulder pain or any upper extremity pain. Patient denies chest pain or back pain. Patient denies any hip pain or lower extremity pain. According to EMS the patient was knocked dazed or unconscious after the fall she was able to get up and ambulate prior to EMS arrival. - Related Data Home Medications Medication Instructions Recorded Confirmed Allopurinol [Zyloprim] 300 mg PO DAILY@0900 06/06/17 06/06/18 Aspirin [Adult Low Dose Aspirin EC] 81 mg PO DAILY@0900 06/06/17 06/06/18 Cholecalciferol [Vitamin D3] 1,000 unit PO DAILY@0900 06/06/17 06/06/18 Levothyroxine Sodium [Synthroid] 25 mcg PO DAILY@0600 06/06/17 06/06/18 buPROPion SR [Wellbutrin SR] 100 mg PO BID@0900,209906/06/17 06/06/18 Atorvastatin [Lipitor] 20 mg PO HS@209901/11/18 06/06/18 Latanoprost [Xalatan 0.005%] 1 drop BOTH EYES HS@209901/11/18 06/06/18 Acetaminophen Tab [Tylenol Tab] 650 mg PO Q4H PRN 05/03/18 06/06/18 Ammonium Lactate Cream [Lac-Hydrin 1 applic TOPICAL BID 05/03/18 06/06/18 12% Cream] Diclofenac Sodium Gel [Voltaren 2 gm TOPICAL BID@0900,209905/03/18 06/06/18 Gel] Ferrous Sulfate [Feosol] 325 mg PO HS@209905/03/18 06/06/18 Lactose-Reduced Food [Ensure Plus] 1 can PO TID@1000,1500,199905/03/18 06/06/18 Omeprazole [PriLOSEC] 40 mg PO DAILY@0600 05/03/18 06/06/18 Sennosides [Senna] 8.6 mg PO BID@0900,209905/03/18 06/06/18 Timolol Maleate/Pf [Timoptic 0.25% 1 drop BOTH EYES BID@0900,209905/03/1806/06 Ocudose] Acetaminophen with Codeine 1 tab PO Q6H PRN 06/06/18 06/06/18 [Tylenol w/codeine #3] Depo-Medrol Suspension 40mg/Ml 40 mg SQ ONCE PRN 06/06/18 06/06/18 Dorzolamide 2% [Trusopt 2%] 1 drops BOTH EYES BID@0900,209906/06/18 06/06/18 Lactulose 10 gm PO BID PRN 06/06/18 06/06/18 Magnesium Oxide [Magox 400] 400 mg PO DAILY@0900 06/06/18 06/06/18 guaiFENesin [guaiFENesin Oral 200 mg PO Q4H PRN 06/06/18 06/06/18 Solution] Allergies Allergy/AdvReac Type Severity Reaction Status Date / Time Penicillins Allergy Unknown Verified 06/06/18 11:50 Sulfa (Sulfonamide Allergy Unknown Verified 06/06/18 11:50 Antibiotics) Review of Systems ROS Statement: Those systems with pertinent positive or pertinent negative responses have been documented in the HPI. ROS Other: All systems not noted in ROS Statement are negative. Past Medical History Past Medical History: COPD, Thyroid Disorder Additional Past Medical History / Comment(s): Orthostatic hypotension, pacemaker , History of Any Multi-Drug Resistant Organisms: None Reported Past Surgical History: Heart Catheterization With Stent, Orthopedic Surgery, Tonsillectomy Additional Past Surgical History / Comment(s): left knee replacement Date of Last Stent Placement:: 2002? Past Psychological History: No Psychological Hx Reported Smoking Status: Former smoker Past Alcohol Use History: None Reported Past Drug Use History: None Reported General Exam - General Exam Comments Initial Comments: GENERAL: Patient is well-developed and well-nourished. Patient is nontoxic and well- hydrated and is in mild distress. ENT: Neck is soft and supple. No significant lymphadenopathy is noted. Oropharynx is clear. Moist mucous membranes. Neck has full range of motion without eliciting any pain. Patient is a large hematoma to the left forehead and swelling around the left eye. EYES: There is a prostaglandin insulin left and right 12 are normal Periorbital swelling on the left is significantly to the point I am unable to examine the eye. Maybe a little bit of examine the eye once I get the bandages off later. PULMONARY: Unlabored respirations. Good breath sounds bilaterally. No audible rales rhonchi or wheezing was noted. CARDIOVASCULAR: There is a regular rate and rhythm without any murmurs gallops or rubs. ABDOMEN: Soft and nontender with normal bowel sounds. No palpable organomegaly was noted. There is no palpable pulsatile mass. SKIN: Skin is clear with no lesions or rashes and otherwise unremarkable. NEUROLOGIC: Patient is alert and oriented x3. Cranial nerves II through XII are grossly intact. Motor and sensory are also intact. Normal speech, volume and content. Symmetrical smile. MUSCULOSKELETAL: Normal extremities with adequate strength and full range of motion. No lower extremity swelling or edema. No calf tenderness. LYMPHATICS: No significant lymphadenopathy is noted PSYCHIATRIC: Normal psychiatric evaluation. Limitations: no limitations Course Vital Signs 06/06/18 06/06/18 06/06/18 11:47 12:31 13:50 Temperature 97.5 F L Pulse Rate 86 91 88 Respiratory 18 20 20 Rate Blood Pressure 180/86 186/90 188/88 O2 Sat by Pulse 99 100 99 Oximetry 06/06/18 14:15 Temperature Pulse Rate 85 Respiratory 20 Rate Blood Pressure 160/89 O2 Sat by Pulse 99 Oximetry Medical Decision Making - Medical Decision Making Once patient had a CAT scan of the head and neck showed no acute abnormality I examine the eye she had full range of motion of the eye but she did have significant cell conjunctiva hemorrhage. CT of the facial bones showed no acute abnormality. Patient's femur showed no acute abnormality. Disposition Clinical Impression: Fall, Forehead laceration, Contusion, thigh Disposition: HOME SELF-CARE Instructions: Fall Prevention for Older Adults (ED), Contusion in Adults (ED), Laceration (ED) Is patient prescribed a controlled substance at d/c from ED?: No Referrals: Rai Pugh MD [Primary Care Provider] - 1-2 days Time of Disposition: 15:49
[2018-06-06] MEDS ORDERED: ACETAMINOPHEN TAB 325 MG TAB PO STA (12:01)
[2018-06-06 12:39] VITALS: RESP 20
--- NOTE | 2018-06-06 14:09 | CT ---
EXAMINATION TYPE: CT brain cspine wo con, CT facial bones wo con DATE OF EXAM: 06/06/2018 COMPARISON: 05/03/2018 and 06/06/2017 HISTORY: Fall with subsequent head and neck pain CT DLP: 941 (accession [id number]), Included in Brain/C-spine of 941 (accession [id number]) mGycm. Automa kayla Exposure Control for Dose Reduction was Utilized. TECHNIQUE: CT scan of the head and cervical spine are performed without contrast. FINDINGS: Patient positioning is suboptimal rendering evaluation of the posterior fossa and inferior margins of the supratentorial brain nearly nondiagnostic. There is symmetric prominence of the perip heral sulci and ventricular system compatible with age-related volume loss. No acute intracranial hem orrhage, midline shift or mass effect is seen. There is a large left periorbital hematoma with areas of hyperdensity measuring up to 2.0 cm in thick ness. This appears to be localized within the preseptal soft tissues although there is mass effect up on the left globe. Left globe does not demonstrate CT evidence of rupture. There is expansile hyperdensity filling the frontal sinuses with complete dehiscence of the posterior frontal sinus russo such as on series 201 image 51 as seen on the prior exams. Mild mucosal thickeni ng is also noted within the ethmoid sinuses. Numerous dental fillings creates spray artifact and part ially limiting evaluation. Mastoid air cells appear well aerated. Nasal bone and nasal septum are kee ssly intact as does the maxillary spine and pterygoid plates. Temporomandibular joints display degene rative change on the right without dislocation. There are extensive multilevel degenerative changes of the cervical spine as seen on the prior of 05/03/2018. There is destructive pannus formation posterior to the C1 vertebral body with osteolytic kinney ge of the posterior aspect of C2. There is persistent grade 1 anterolisthesis of C2 on C3 and C3 on C 4 as well as C7 on T1. Posterior disc osteophyte complexes are seen throughout the cervical spine. Mu ltilevel intervertebral disc space narrowing, anterior osteophytes, uncovertebral hypertrophy and fac et arthropathy are again noted. There is an exaggeration of the usual cervical lordosis. Lung apices demonstrate emphysematous change. IMPRESSION: 1. Large left periorbital hematoma measuring 2.0 cm in greatest thickness. No bony orbit fracture. 2. There is no acute fracture or dislocation evident in the cervical spine. 3. No acute intracranial hemorrhage, mass effect, or midline shift is seen. Patient positioning makes evaluation of the brain somewhat suboptimal. 4. Expansile hyperdensity opacifying the frontal sinus with dehiscence of the posterior russo as seen on the prior exam is again mucocele should be considered and ENT consultation is recommended. 5. 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
[2018-06-06] MEDS ORDERED: LIDOCAINE 1% INJ 10MG/ML (20 ML MDV) SQ STA (15:35)
--- NOTE | 2018-06-06 15:37 | XR ---
Left femur HISTORY: Trauma and pain 2 views of the left femur Bone mineralization is reduced which may limit sensitivity. Alignment and joint spaces are maintained . Patient is status post left knee arthroplasty. IMPRESSION: No fracture or dislocation evident. Follow-up as indicated.
[2018-06-06 17:07] VITALS: PULSE 71
[2018-06-06 17:38] VITALS: BP 156/80; TEMP 98.3
== END 2018-06-06 17:37 | disposition short-term general hospital (02) ==
LOC: EC 11:31
DX: S01.81XA Laceration without foreign body of other part of head, initial encounter (principal); S70.10XA Contusion of unspecified thigh, initial encounter; Z23 Encounter for immunization; E07.9 Disorder of thyroid, unspecified; Z79.82 Long term (current) use of aspirin; Z79.899 Other long term (current) drug therapy; Z88.0 Allergy status to penicillin; Z88.2 Allergy status to sulfonamides; Z87.891 Personal history of nicotine dependence; Z96.652 Presence of left artificial knee joint; W05.0XXA Fall from non-moving wheelchair, initial encounter; Y92.009 Unspecified place in unspecified non-institutional (private) residence as the place of occurrence of the external cause
CPT/HCPCS: 73552; 72125; 70486; 70450; 90715; 99285; 90471; 96372; J2001

== ENCOUNTER 2018-07-04 23:55 | Emergency (ER) | payer MEDICARE, BC ==
[2018-07-05 00:05] VITALS: RESP 18
--- NOTE | 2018-07-05 02:09 | CT ---
EXAMINATION TYPE: CT brain lucille larose con DATE OF EXAM: 07/05/2018 COMPARISON: 06/06/2018 HISTORY: Patient present pain after fall. Laceration on patients forehead. Prior on pacs. CT DLP: 1261.6 mGycm Automated exposure control for dose reduction was used. TECHNIQUE: CT scan of the head and cervical spine are performed without contrast. FINDINGS: There is cerebral cortical atrophy. There is no mass effect nor midline shift. There is n o sign of intracranial hemorrhage. There is left frontal scalp soft tissue swelling. There is high at tenuation in the frontal sinus with some erosion of the inner table. This is unchanged compared to ol d exam. There is no evidence of a skull fracture. The cervical vertebra have fairly normal alignment. There is extensive thickening of the transverse l igament and narrowing of the spinal canal. There is no compression fracture. There is degenerative di sc space narrowing throughout the cervical spine. There is mild anterior subluxation of C7 in relatio n to T1. I see no focal bone destruction. IMPRESSION: No acute intracranial abnormality. Cerebral atrophy. High attenuation in the frontal sinus with thinning and erosion of the inner table that could relate to a mucocele that is unchanged. Left frontal scalp soft tissue swelling and laceration deformity. Br ain unchanged compared to last exam. Multilevel severe spondylotic changes. Significant thickening of the transverse ligament at C1 level with 6 mm spinal stenosis at the C1 level that is unchanged. No cervical spine fracture seen.
--- NOTE | 2018-07-05 03:34 | ED ---
General Adult HPI - General Chief complaint: Fall Stated complaint: fall Time Seen by Provider: 07/05/18 00:50 Source: patient, EMS, RN notes reviewed Mode of arrival: EMS Limitations: no limitations - History of Present Illness Initial comments: 83-year-old female presents to the emergency department for a chief complaint of head injury occurring about one hour prior to arrival. Patient was transferred here from [facility]. According to [facility] patient was sleeping in her wheelchair which is common for her. She then fell out of her wheelchair which is also common for her. Patient states she must have fallen asleep. She denies loss of consciousness. Patient is not on blood thinners. She denies significant headache at this time. Patient denies any neck pain whatsoever. She denies any other injuries or pain. Patient has no other complaints at this time including shortness of breath, chest pain, abdominal pain, nausea or vomiting, headache, or visual changes. - Related Data Home Medications Medication Instructions Recorded Confirmed Allopurinol [Zyloprim] 300 mg PO DAILY@0900 06/06/17 06/06/18 Aspirin [Adult Low Dose Aspirin EC] 81 mg PO DAILY@0900 06/06/17 06/06/18 Cholecalciferol [Vitamin D3] 1,000 unit PO DAILY@0900 06/06/17 06/06/18 Levothyroxine Sodium [Synthroid] 25 mcg PO DAILY@0600 06/06/17 06/06/18 buPROPion SR [Wellbutrin SR] 100 mg PO BID@0900,2100 06/06/17 06/06/18 Atorvastatin [Lipitor] 20 mg PO HS@209901/11/18 06/06/18 Latanoprost [Xalatan 0.005%] 1 drop BOTH EYES HS@209901/11/18 06/06/18 Acetaminophen Tab [Tylenol Tab] 650 mg PO Q4H PRN 05/03/18 06/06/18 Ammonium Lactate Cream [Lac-Hydrin 1 applic TOPICAL BID 05/03/18 06/06/18 12% Cream] Diclofenac Sodium Gel [Voltaren 2 gm TOPICAL BID@0900,2100 05/03/18 06/06/18 Gel] Ferrous Sulfate [Feosol] 325 mg PO HS@209905/03/18 06/06/18 Lactose-Reduced Food [Ensure Plus] 1 can PO TID@1000,1500,199905/03/18 06/06/18 Omeprazole [PriLOSEC] 40 mg PO DAILY@0600 05/03/18 06/06/18 Sennosides [Senna] 8.6 mg PO BID@0900,209905/03/18 06/06/18 Timolol Maleate/Pf [Timoptic 0.25% 1 drop BOTH EYES BID@0900,209905/03/1806/06 Ocudose] Acetaminophen with Codeine 1 tab PO Q6H PRN 06/06/18 06/06/18 [Tylenol w/codeine #3] Depo-Medrol Suspension 40mg/Ml 40 mg SQ ONCE PRN 06/06/18 06/06/18 Dorzolamide 2% [Trusopt 2%] 1 drops BOTH EYES BID@0900,209906/06/18 06/06/18 Lactulose 10 gm PO BID PRN 06/06/18 06/06/18 Magnesium Oxide [Magox 400] 400 mg PO DAILY@0900 06/06/18 06/06/18 guaiFENesin [guaiFENesin Oral 200 mg PO Q4H PRN 06/06/18 06/06/18 Solution] Allergies Allergy/AdvReac Type Severity Reaction Status Date / Time Penicillins Allergy Unknown Verified 07/05/18 00:05 Sulfa (Sulfonamide Allergy Unknown Verified 07/05/18 00:05 Antibiotics) Review of Systems ROS Statement: Those systems with pertinent positive or pertinent negative responses have been documented in the HPI. ROS Other: All systems not noted in ROS Statement are negative. Past Medical History Past Medical History: COPD, Thyroid Disorder Additional Past Medical History / Comment(s): Orthostatic hypotension, pacemaker , History of Any Multi-Drug Resistant Organisms: None Reported Past Surgical History: Heart Catheterization With Stent, Orthopedic Surgery, Tonsillectomy Additional Past Surgical History / Comment(s): left knee replacement Date of Last Stent Placement:: 2002? Past Psychological History: No Psychological Hx Reported Smoking Status: Former smoker Past Alcohol Use History: None Reported Past Drug Use History: None Reported General Exam Limitations: no limitations General appearance: alert, in no apparent distress Head exam: Present: normocephalic, normal inspection. Absent: atraumatic ( Patient is a small hematoma with a 3 cm skin tear noted to the left frontal area ) Eye exam: Present: normal appearance, PERRL, EOMI. Absent: scleral icterus, conjunctival injection, periorbital swelling ENT exam: Present: normal exam, mucous membranes moist Neck exam: Present: normal inspection, full ROM. Absent: tenderness (no cervical spine tenderness), meningismus, lymphadenopathy Respiratory exam: Present: normal lung sounds bilaterally. Absent: respiratory distress, wheezes, rales, rhonchi, stridor Cardiovascular Exam: Present: regular rate, normal rhythm, normal heart sounds. Absent: systolic murmur, diastolic murmur, rubs, gallop, clicks GI/Abdominal exam: Present: soft, normal bowel sounds. Absent: distended, tenderness, guarding, rebound, rigid Neurological exam: Present: alert, oriented X3, CN II-XII intact Psychiatric exam: Present: normal affect, normal mood Skin exam: Present: warm, dry, intact, normal color. Absent: rash Course Vital Signs 07/05/18 07/05/18 00:02 01:29 Temperature 98 F Pulse Rate 77 79 Respiratory 18 18 Rate Blood Pressure 160/75 160/61 O2 Sat by Pulse 99 100 Oximetry Medical Decision Making - Medical Decision Making 83-year-old female presents for headache injury. Patient lives at a correction and was sleeping in her wheelchair, apparently fell out of it. According to [facility] this is common for her. Patient does have a skin tear noted to the left frontal scalp. No stitches necessary at this time. This was cleaned and bandaged. Patient had a tetanus shot one month ago. CT brain and C-spine imaging report reviewed. CT brain shows no acute intracranial abnormality. CT C-spine shows no acute cervical spine fracture. At this time patient is stable for discharge. Vitals are within physical limits. Patient states she is ready to go home. She will return if she has any worsening symptoms. She'll follow up with primary care in 1-2 days. Disposition Clinical Impression: Head injury, Skin tear Disposition: HOME SELF-CARE Condition: Good Instructions: Fall Prevention for Older Adults (ED), Head Injury (ED) Additional Instructions: Please take Tylenol for pain. Please follow-up with primary care in 1-2 days. Return if you have any worsening symptoms. Is patient prescribed a controlled substance at d/c from ED?: No Referrals: Rai Pugh MD [Primary Care Provider] - 1-2 days Time of Disposition: 03:32
[2018-07-05 04:37] VITALS: BP 149/60; PULSE 84; TEMP 97.6
== END 2018-07-05 05:21 | disposition home or self-care (01) ==
LOC: EC 23:55
DX: S01.01XA Laceration without foreign body of scalp, initial encounter (principal); E07.9 Disorder of thyroid, unspecified; I95.1 Orthostatic hypotension; Z87.891 Personal history of nicotine dependence; Z88.0 Allergy status to penicillin; Z88.2 Allergy status to sulfonamides; Z79.1 Long term (current) use of non-steroidal anti-inflammatories (NSAID); Z79.82 Long term (current) use of aspirin; Z79.899 Other long term (current) drug therapy; Z95.0 Presence of cardiac pacemaker; Z95.5 Presence of coronary angioplasty implant and graft; Z96.652 Presence of left artificial knee joint; W05.0XXA Fall from non-moving wheelchair, initial encounter; Y93.89 Activity, other specified; Y92.129 Unspecified place in nursing home as the place of occurrence of the external cause
CPT/HCPCS: 70450; 72125; 99284

== ENCOUNTER → 2018-10-25 | Outpatient (CLI) | payer MEDICARE, BC, OTHER ==
--- NOTE | 2018-10-25 15:43 | US ---
EXAMINATION TYPE: US carotid duplex BILAT DATE OF EXAM: 10/25/2018 COMPARISON: NONE CLINICAL HISTORY: R55 SYNCOPE,R29.6 FREQ FALLS,R20.0 NUMBNESS RT HAND. syncope, dizziness, rt hand nu mbness, no h/o stroke EXAM MEASUREMENTS: RIGHT: Peak Systolic Velocity (PSV) cm/sec ----- Right CCA: 103.1 ----- Right ICA: 115.7 ----- Right ECA: 89.2 ICA/CCA ratio: 1.1 RIGHT: End Diastole cm/sec ----- Right CCA: 22.2 ----- Right ICA: 23.5 ----- Right ECA: 7.1 LEFT: Peak Systolic Velocity (PSV) cm/sec ----- Left CCA: 73.4 ----- Left ICA: 34.3 ----- Left ECA: 67.7 ICA/CCA ratio: 0.5 LEFT: End Diastole cm/sec ----- Left CCA: 12.8 ----- Left ICA: 3.2 ----- Left ECA: 9.3 VERTEBRALS (direction of flow): Right Vertebral: Antegrade Left Vertebral: Antegrade Rhythm: Normal Heterogeneous plaque bilateral bulbs with no significant stenosis seen. IMPRESSION: Mild degree of grayscale atheromatous plaquing with no sonographically evident hemodynam ically significant stenosis within either visualized carotid arterial system. Criteria for Assigning % of Stenosis / Diameter reduction (Estimation based on the indirect measurements of the internal carotid artery velocities (ICA PSV). 1. Normal (no stenosis)=ICA PSV < 125 cm/s: ratio < 2.0: ICA EDV<40 cm/s. 2. Less than 50% stenosis=ICA PSV < 125 cm/s: ratio < 2.0: ICA EDV<40 cm/s. 3. 50 to 69% stenosis=ICA PSV of 125 to 230 cm/s: ration 2.0 ? 4.0: ICA EDV 40-100 cm/s. 4. Greater than 70% stenosis to near occlusion= ICA PSV > 230 cm/s: ratio > 4.0: ICA EDV > 100 cm/s. 5. Near occlusion= ICA PSV velocities may be low or undetectable: variable ratio and ICA EDV. 6. Total occlusion=unable to detect flow.
== END | disposition home or self-care (01) ==
LOC: RADUSWWP 15:02
PROVIDERS: ATTEND Psychiatry & Neurology Neurology
DX: I65.23 Occlusion and stenosis of bilateral carotid arteries (principal)
CPT/HCPCS: 93880

== ENCOUNTER 2018-11-11 03:07 | Emergency (ER) | payer MEDICARE, BC, OTHER ==
[2018-11-11] MEDS ORDERED: Acetaminophen-Codeine 300-30mg TAB PO STA (03:29)
[2018-11-11] MEDS ORDERED: DIPH,PERTUS(ACELL)TETVAC-LF 0.5 ML VIAL IM ONE (03:29)
--- NOTE | 2018-11-11 03:47 | ED ---
Fall HPI - General Stated Complaint: Fall Time Seen by Provider: 11/11/18 03:09 - History of Present Illness Initial Comments: 83-year-old female patient presents to the emergency department today for evaluation after experiencing a fall from bed. Patient states that she does have poor balance and has had numerous falls. Patient states she was attempting to get up from bed when she felt her feet slipped and she fell striking her head on her nightstand. States that she did strike the front part of her head. She is unsure if she lost consciousness. Patient denies any other injuries. Denies any neck or back pain. She denies a current headache, blurred vision, double vision, nausea, or vomiting. Patient denies any chest pain, shortness of breath, dizziness, weakness, abdominal pain, nausea, vomiting, or difficulties with bowel movements or urination. She does have a skin tear to the left nicolas, she is unsure when her last tetanus vaccine was administered. - Related Data Home Medications Medication Instructions Recorded Confirmed Allopurinol [Zyloprim] 300 mg PO DAILY@0900 06/06/17 09/25/18 Aspirin [Adult Low Dose Aspirin EC] 81 mg PO DAILY@0900 06/06/17 09/25/18 Cholecalciferol [Vitamin D3 (25 1,000 unit PO DAILY@0906/06/17 09/25/18 Mcg = 1000 Iu)] Levothyroxine Sodium [Synthroid] 25 mcg PO DAILY@0600 06/06/17 09/25/18 buPROPion SR [Wellbutrin SR] 100 mg PO BID@0900,209906/06/17 09/25/18 Atorvastatin [Lipitor] 20 mg PO HS@209901/11/18 09/25/18 Latanoprost [Xalatan 0.005%] 1 drop BOTH EYES HS@209901/11/18 09/25/18 Acetaminophen Tab [Tylenol Tab] 650 mg PO Q4H PRN 05/03/18 09/25/18 Ammonium Lactate Cream [Lac-Hydrin 1 applic TOPICAL BID 05/03/18 09/25/18 12% Cream] Diclofenac Sodium Gel [Voltaren 2 gm TOPICAL BID@0900,209905/03/18 09/25/18 Gel] Ferrous Sulfate [Feosol] 325 mg PO HS@209905/03/18 09/25/18 Lactose-Reduced Food [Ensure Plus] 1 can PO TID@1000,1500,199905/03/18 09/25/18 Omeprazole [PriLOSEC] 40 mg PO DAILY@0600 05/03/18 09/25/18 Sennosides [Senna] 8.6 mg PO BID@0900,2100 05/03/18 09/25/18 Timolol Maleate/Pf [Timoptic 0.25% 1 drop BOTH EYES BID@0900,209905/03/18 09/25/18 Ocudose] Acetaminophen with Codeine 1 tab PO Q6H PRN 06/06/18 09/25/18 [Tylenol w/codeine #3] Dorzolamide 2% [Trusopt 2%] 1 drops BOTH EYES BID@0900,209906/06/18 09/25/18 Lactulose 10 gm PO BID PRN 06/06/18 09/25/18 Magnesium Oxide [Magox 400] 400 mg PO DAILY@0900 06/06/18 09/25/18 guaiFENesin [guaiFENesin Oral 200 mg PO Q4H PRN 06/06/18 09/25/18 Solution] Allergies Allergy/AdvReac Type Severity Reaction Status Date / Time Penicillins Allergy Unknown Verified 11/11/18 03:38 Sulfa (Sulfonamide Allergy Unknown Verified 11/11/18 03:38 Antibiotics) Review of Systems ROS Statement: Those systems with pertinent positive or pertinent negative responses have been documented in the HPI. ROS Other: All systems not noted in ROS Statement are negative. Past Medical History Past Medical History: COPD, Eye Disorder, GERD/Reflux, Thyroid Disorder Additional Past Medical History / Comment(s): Orthostatic hypotension, pacemaker,. Kidney disease Glaucoma History of Any Multi-Drug Resistant Organisms: None Reported Past Surgical History: Heart Catheterization With Stent, Orthopedic Surgery, Tonsillectomy Additional Past Surgical History / Comment(s): left knee replacement. Laser surgery left eye Date of Last Stent Placement:: 2002? Smoking Status: Former smoker General Exam General appearance: alert, in no apparent distress, other (Physical well- developed, well-nourished elderly female patient in no acute distress.) Head exam: Present: atraumatic, normocephalic, normal inspection Eye exam: Present: normal appearance, PERRL, EOMI. Absent: scleral icterus, conjunctival injection, periorbital swelling ENT exam: Present: normal exam, normal oropharynx, mucous membranes moist Neck exam: Present: normal inspection, other (No bony step-off, deformity, or tenderness noted to for midline palpation of the posterior cervical spine.). Absent: tenderness, meningismus, full ROM (Hard c-collar in place), lymphadenopathy Respiratory exam: Present: normal lung sounds bilaterally. Absent: respiratory distress, wheezes, rales, rhonchi, stridor Cardiovascular Exam: Present: regular rate, normal rhythm, normal heart sounds. Absent: systolic murmur, diastolic murmur, rubs, gallop, clicks GI/Abdominal exam: Present: soft, normal bowel sounds. Absent: distended, tenderness, guarding, rebound, rigid Extremities exam: Present: full ROM, normal capillary refill, other (Patient has small skin tear noted to the left nciolas, no active bleeding. No tenderness over shoulders, elbows, wrists. No tenderness over the hips, or pelvic instability. Skin to all Chevys is pink, warm, dry. Cap refills less than 3 seconds. Radial pulses 2+ and equal bilaterally. Pedal pulses 2+ and equal bilaterally.). Absent: normal inspection, tenderness, pedal edema, joint swelling, calf tenderness Back exam: Present: normal inspection, other (Nontender, no step-off, no deformity to firm midline palpation of the thoracic and lumbar vertebrae. Full range of motion without pain or limitation.). Absent: vertebral tenderness Neurological exam: Present: alert, oriented X3, CN II-XII intact Psychiatric exam: Present: normal affect, normal mood Skin exam: Present: warm, dry, intact, normal color. Absent: rash Course Vital Signs 11/11/18 04:01 Temperature 98.1 F Pulse Rate 87 Respiratory 18 Rate Blood Pressure 167/99 O2 Sat by Pulse 96 Oximetry Medical Decision Making - Medical Decision Making 83-year-old female patient was sent from [facility] on the [place] for evaluation after experiencing a fall. There is concern that she did hit her head. Upon arrival patient is reporting no significant pain. She denies headache, neck pain, back pain. She has had a skin tear to the left anterior lower leg. Skin is otherwise intact. She is neurovascularly intact. She is neurologically intact with no focal deficits. CT of the brain and C-spine were obtained and showed no acute abdomen ALLERGIES. She'll be discharged back to [facility] [place] the [place]. She is instructed follow up with her primary care physician for recheck in 1-2 days. Return parameters discussed in detail. She verbalizes understanding and agrees with this plan. - Radiology Data Radiology results: report reviewed, image reviewed CT of the head without contrast was obtained. Report was reviewed in its entirety. Impression by Dr. Warner shows no acute intracranial process. Inhalation changes with small vessel disease. Stable compared to prior study per CT of the C-spine without contrast was obtained. Report was reviewed in its entirety. Impression by Dr. Warner shows no change in alignment compared to the prior study. No evidence for acute fracture. Disposition Clinical Impression: Fall, Head injury, Skin tear of left lower leg without complication Disposition: HOME SELF-CARE Condition: Good Instructions (If sedation given, give patient instructions): Fall Prevention for Older Adults (ED), Head Injury (ED), Skin Tear (ED) Additional Instructions: Keep wound to leg clean and dry. Follow up with the primary care physician for recheck in 1-2 days. Return to the emergency department immediately for any new, worsening, or concerning symptoms. Is patient prescribed a controlled substance at d/c from ED?: No Referrals: Rai Pugh MD [Primary Care Provider] - 1-2 days Time of Disposition: 04:26
[2018-11-11 04:02] VITALS: BP 167/99; PULSE 87; RESP 18; TEMP 98.1
--- NOTE | 2018-11-11 04:19 | CT ---
EXAM: CT Head Without Intravenous Contrast CLINICAL HISTORY: Pain TECHNIQUE: Axial computed tomography images of the head/brain without intravenous contrast. CTDI is 45.2 mGy and DLP is 1054 mGy-cm. This CT exam was performed using one or more of the following dose reduction techniques: automated exposure control, adjustment of the mA and/or kV according to patient size, and/or use of iterative reconstruction technique. COMPARISON: FINDINGS: Stable appearance to right frontal mucocele. No acute intracranial hemorrhage or hematoma is noted. No intracranial mass or mass effect is seen. There are involutional changes with prominence of the sulci, basal cisterns and ventricles. Scattered white matter hypoattenuations are present, likely from small vessel disease. The choi- white differentiation is preserved. No evidence of mass effect, midline shift, or edema. The osseous structures are unremarkable. The visualized portions of the paranasal sinuses are clear. IMPRESSION: 1. No acute intracranial process. 2. Involutional changes with small vessel disease. Stable compared to prior study EXAM: CT Cervical Spine Without Intravenous Contrast CLINICAL HISTORY: Pain TECHNIQUE: Axial computed tomography images of the cervical spine without intravenous contrast. CTDI is 9.9 mGy and DLP is 270.2 mGy-cm. This CT exam was performed using one or more of the following dose reduction techniques: automated exposure control, adjustment of the mA and/or kV according to patient size, and/or use of iterative reconstruction technique. Coronal and sagittal reformatted images were created and reviewed. COMPARISON: No relevant prior studies available. FINDINGS: Vertebrae: Unremarkable. No acute fracture. Discs/spinal canal/neural foramina: No acute findings. No spinal canal stenosis. Soft tissues: Unremarkable. IMPRESSION: No change in alignment compared to the prior study. No evidence for acute fracture.
== END 2018-11-11 05:30 | disposition home or self-care (01) ==
LOC: EC 03:07
DX: S81.812A Laceration without foreign body, left lower leg, initial encounter (principal); S09.90XA Unspecified injury of head, initial encounter; E07.9 Disorder of thyroid, unspecified; K21.9 Gastro-esophageal reflux disease without esophagitis; Z23 Encounter for immunization; Z79.82 Long term (current) use of aspirin; Z79.890 Hormone replacement therapy; Z79.899 Other long term (current) drug therapy; Z88.0 Allergy status to penicillin; Z88.2 Allergy status to sulfonamides; Z87.891 Personal history of nicotine dependence; Z95.0 Presence of cardiac pacemaker; Z95.5 Presence of coronary angioplasty implant and graft; Z96.652 Presence of left artificial knee joint; W06.XXXA Fall from bed, initial encounter; Y92.003 Bedroom of unspecified non-institutional (private) residence as the place of occurrence of the external cause
CPT/HCPCS: 70450; 72125; 90471; 90715; 99284

== ENCOUNTER 2018-12-12 00:17 | Emergency (ER) | payer MEDICARE, BC, OTHER ==
[2018-12-12 00:25] VITALS: PULSE 70; RESP 16
[2018-12-12] MEDS ORDERED: ACETAMINOPHEN TAB 325 MG TAB PO STA (01:21)
--- NOTE | 2018-12-12 01:29 | ED ---
Fall HPI - General Chief Complaint: Fall Stated Complaint: Fall Time Seen by Provider: 12/12/18 00:30 Source: patient, EMS Mode of arrival: EMS - History of Present Illness Initial Comments: This patient is 83-year-old woman who presents after having a fall. The patient states she has been having frequent falls. She states that she frequently falls asleep while sitting and if the arms of her wheelchair not down to catch her she can follow out of the wheelchair. She states that that exact situation happens tonight. She did pitch forward and strike left side of her forehead on the floor. She complains of some localized headache. No loss consciousness. Denies neurologic symptoms. She states she is also having some right upper arm pain. She does note that she has chronic right shoulder pain. Denies other injuries. MD Complaint: fall Onset/Timin -: hour(s) Fall From: wheelchair When Fall Occurred: 1 hour [employer] Fall Witnessed: no Place Fall Occurred: correction/SNF Loss of Consciousness: none Prolonged Down Time?: no Location: head Severity: mild Quality: aching Context: history of frequent falls Associated Symptoms: denies - Related Data Home Medications Medication Instructions Recorded Confirmed Allopurinol [Zyloprim] 300 mg PO DAILY@0900 06/06/17 09/25/18 Aspirin [Adult Low Dose Aspirin EC] 81 mg PO DAILY@0906/06/17 09/25/18 Cholecalciferol [Vitamin D3 (25 1,000 unit PO DAILY@0900 06/06/17 09/25/18 Mcg = 1000 Iu)] Levothyroxine Sodium [Synthroid] 25 mcg PO DAILY@0600 06/06/17 09/25/18 buPROPion SR [Wellbutrin SR] 100 mg PO BID@0900,209906/06/17 09/25/18 Atorvastatin [Lipitor] 20 mg PO HS@209901/11/18 09/25/18 Latanoprost [Xalatan 0.005%] 1 drop BOTH EYES HS@209901/11/18 09/25/18 Acetaminophen Tab [Tylenol Tab] 650 mg PO Q4H PRN 05/03/18 09/25/18 Ammonium Lactate Cream [Lac-Hydrin 1 applic TOPICAL BID 05/03/18 09/25/18 12% Cream] Diclofenac Sodium Gel [Voltaren 2 gm TOPICAL BID@0900,209905/03/18 09/25/18 Gel] Ferrous Sulfate [Feosol] 325 mg PO HS@209905/03/18 09/25/18 Lactose-Reduced Food [Ensure Plus] 1 can PO TID@1000,1500,199905/03/18 09/25/18 Omeprazole [PriLOSEC] 40 mg PO DAILY@0600 05/03/18 09/25/18 Sennosides [Senna] 8.6 mg PO BID@0900,209905/03/18 09/25/18 Timolol Maleate/Pf [Timoptic 0.25% 1 drop BOTH EYES BID@0900,209905/03/18 09/25/18 Ocudose] Acetaminophen with Codeine 1 tab PO Q6H PRN 06/06/18 09/25/18 [Tylenol w/codeine #3] Dorzolamide 2% [Trusopt 2%] 1 drops BOTH EYES BID@0900,209906/06/18 09/25/18 Lactulose 10 gm PO BID PRN 06/06/18 09/25/18 Magnesium Oxide [Magox 400] 400 mg PO DAILY@0900 06/06/18 09/25/18 guaiFENesin [guaiFENesin Oral 200 mg PO Q4H PRN 06/06/18 09/25/18 Solution] Allergies Allergy/AdvReac Type Severity Reaction Status Date / Time Penicillins Allergy Unknown Verified 11/11/18 03:38 Sulfa (Sulfonamide Allergy Unknown Verified 11/11/18 03:38 Antibiotics) Review of Systems ROS Statement: Those systems with pertinent positive or pertinent negative responses have been documented in the HPI. ROS Other: All systems not noted in ROS Statement are negative. Constitutional: Denies: weakness Eyes: Denies: vision change ENT: Denies: epistaxis Respiratory: Denies: cough, dyspnea Cardiovascular: Denies: chest pain, syncope Gastrointestinal: Denies: abdominal pain, nausea, vomiting Musculoskeletal: Denies: back pain Neurological: Reports: headache. Denies: weakness, numbness, paresthesias, confusion Past Medical History Past Medical History: COPD, Eye Disorder, GERD/Reflux, Thyroid Disorder Additional Past Medical History / Comment(s): Orthostatic hypotension, pacemaker,. Kidney disease Glaucoma History of Any Multi-Drug Resistant Organisms: None Reported Past Surgical History: Heart Catheterization With Stent, Orthopedic Surgery, Tonsillectomy Additional Past Surgical History / Comment(s): left knee replacement. Laser surgery left eye Date of Last Stent Placement:: 2002? Past Psychological History: No Psychological Hx Reported Smoking Status: Former smoker General Exam General appearance: alert, in no apparent distress Head exam: Present: normocephalic, other (Contusion, left frontal. In addition there is an approximately 2.5 cm laceration which has a good closure with Steri- Strips. No active bleeding.) Eye exam: Present: normal appearance, PERRL, EOMI. Absent: scleral icterus, conjunctival injection, nystagmus, periorbital swelling, periorbital tenderness ENT exam: Present: normal oropharynx Neck exam: Present: normal inspection, other (Cervical collar). Absent: tenderness Respiratory exam: Present: normal lung sounds bilaterally. Absent: respiratory distress, wheezes, rales, rhonchi, stridor, chest wall tenderness, accessory muscle use Cardiovascular Exam: Present: regular rate, normal rhythm, normal heart sounds. Absent: systolic murmur, diastolic murmur, rubs, gallop GI/Abdominal exam: Present: soft. Absent: tenderness, guarding, rebound Extremities exam: Present: normal inspection, normal capillary refill. Absent: pedal edema, calf tenderness Back exam: Present: normal inspection. Absent: vertebral tenderness Neurological exam: Present: alert, CN II-XII intact. Absent: motor sensory deficit Skin exam: Present: warm, dry, normal color. Absent: rash Course Vital Signs 12/12/18 00:20 Temperature 97.4 F L Pulse Rate 70 Respiratory 16 Rate O2 Sat by Pulse 95 Oximetry Disposition Clinical Impression: Fall, Head injury, Laceration Disposition: HOME SELF-CARE Condition: Fair Instructions (If sedation given, give patient instructions): Fall Prevention for Older Adults (ED), Head Injury (ED) Is patient prescribed a controlled substance at d/c from ED?: No Referrals: Rai Pugh MD [Primary Care Provider] - 1-2 days
--- NOTE | 2018-12-12 01:52 | XR ---
EXAM: XR Right Humerus, 2 or More Views CLINICAL HISTORY: ITS.REASON XR Reason: Pain TECHNIQUE: Frontal and lateral views of the right humerus. COMPARISON: No relevant prior studies available. FINDINGS: Bones/joints: No acute fracture. No dislocation. Soft tissues: Unremarkable. IMPRESSION: No acute findings.
--- NOTE | 2018-12-12 01:59 | CT ---
EXAM: CT Head Without Intravenous Contrast CLINICAL HISTORY: ITS.REASON CT Reason: Pain TECHNIQUE: Axial computed tomography images of the head/brain without intravenous contrast. CTDI is 45 mGy and DLP is 1156 mGy-cm. This CT exam was performed using one or more of the following dose reduction techniques: automated exposure control, adjustment of the mA and/or kV according to patient size, and/or use of iterative reconstruction technique. COMPARISON: 11/11/18 FINDINGS: Brain: No hemorrhage, large hypodensity, or mass effect. Chronic microvascular ischemic changes. Ventricles: No hydrocephalus. Age-appropriate cerebral volume loss. Bones/joints: Unremarkable. Soft tissues: Unremarkable. Sinuses: High density expansile process in the bilateral frontal lobes with thinning/erosion of the wall, unchanged. Mastoid air cells: Clear. IMPRESSION: No acute hemorrhage, hydrocephalus, or mass effect. High density expansile process in the bilateral frontal lobes with thinning/erosion of the wall, unchanged. Reduction EXAM: CT Cervical Spine Without Intravenous Contrast CLINICAL HISTORY: ITS.REASON CT Reason: Pain TECHNIQUE: Axial computed tomography images of the cervical spine without intravenous contrast. CTDI is 11 mGy and DLP is 361 mGy-cm. This CT exam was performed using one or more of the following dose reduction techniques: automated exposure control, adjustment of the mA and/or kV according to patient size, and/or use of iterative reconstruction technique. COMPARISON: 11/11/18 FINDINGS: Vertebrae: No acute fracture. Discs/spinal canal/neural foramina: Unchanged severe multilevel degenerative changes. Redemonstration of significant calcified pannus at the dens, causing mild canal stenosis at the cervical medullary junction. Severe spinal canal stenosis at C6-7. Soft tissues: Unremarkable. IMPRESSION: No acute fracture or subluxation. 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 Severe spinal canal stenosis at C6-7.
[2018-12-12 02:59] VITALS: TEMP 98.6
== END 2018-12-12 02:57 | disposition home or self-care (01) ==
LOC: EC 00:17
DX: S01.81XA Laceration without foreign body of other part of head, initial encounter (principal); K21.9 Gastro-esophageal reflux disease without esophagitis; E07.9 Disorder of thyroid, unspecified; M48.02 Spinal stenosis, cervical region; Z79.82 Long term (current) use of aspirin; Z79.890 Hormone replacement therapy; Z79.899 Other long term (current) drug therapy; Z87.891 Personal history of nicotine dependence; Z88.0 Allergy status to penicillin; Z88.2 Allergy status to sulfonamides; Z95.5 Presence of coronary angioplasty implant and graft; Z96.652 Presence of left artificial knee joint; Z95.0 Presence of cardiac pacemaker; W05.0XXA Fall from non-moving wheelchair, initial encounter
CPT/HCPCS: 70450; 72125; 99284

== ENCOUNTER → 2019-04-24 | Outpatient (CLI) | payer MEDICARE, BC, OTHER ==
[2019-04-24 16:59] VITALS: BP 150/64; PULSE 67; RESP 16; TEMP 97.5; BMI 19.9
--- NOTE | 2019-04-25 08:50 | P.GSHP ---
History of Present Illness H&P Date: 04/24/19 Chief Complaint: mass in her left breast Yoli is an 84 year old white female who noted a mass in her left breast about 3 weeks ago. she had an ultrasound on 04-11-19 which showed 3.2 cm mass which was solid. She has not had a mammogram recently. She does not complain of any pain in her breast. No nipple discharge. Family History: unknown adopted Hormonal History: menarche: 12 , breast fed: none, first born at 23 menopause: 48 BCP: ? how long hormones: unknown Past Surgical History: 1. left knee replacement 2. cataract bilateral 3. cardiac stints 4. Past Medical History: 1. COPD 2. dysphagia 3. stage three kidney disease 4. anxiety 5. anemia 6. hypothyroid 7. pacemaker 8. dementia 9. hypothyroid Social History: smoke: less than 1 PPD for 71, stopped 15 years ago alcohol: stopped 15 years ago drugs: none - Constitutional Constitutional: Denies chills, Denies fever - EENT Comment: blind left eye Ears: bilateral: decreased hearing Ears, nose, mouth and throat: Denies headache, Denies sore throat - Breasts Breasts: bilateral: as per HPI - Cardiovascular Comment: cardiac stints - Respiratory Comment: COPD former smoker - Gastrointestinal Gastrointestinal: Reports constipation, Reports diarrhea - Genitourinary (Female) Genitourinary: Denies dysuria, Denies hematuria - Menstruation Menstruation: Reports post hysterectomy - Musculoskeletal Comment: arthritis - Integumentary Integumentary: Denies pruritus, Denies rash - Neurological Neurological: Reports numbness - Psychiatric Psychiatric: Reports anxiety, Reports depression - Endocrine Comment: hypothyroid - Hematologic/Lymphatic Comment: baby aspirin - Allergic/Immunologic Allergic/Immunologic: Reports as per HPI Past Medical History Past Medical History: COPD, Eye Disorder, GERD/Reflux, Thyroid Disorder Additional Past Medical History / Comment(s): Orthostatic hypotension, pacemaker,. Kidney disease Glaucoma History of Any Multi-Drug Resistant Organisms: None Reported Past Surgical History: Heart Catheterization With Stent, Orthopedic Surgery, Tonsillectomy Additional Past Surgical History / Comment(s): left knee replacement. Laser surgery left eye Date of Last Stent Placement:: 2002? Past Psychological History: No Psychological Hx Reported Smoking Status: Former smoker Medications and Allergies Home Medications Medication Instructions Recorded Confirmed Type Allopurinol [Zyloprim] 300 mg PO DAILY@0900 06/06/17 09/25/18 History Aspirin [Adult Low Dose Aspirin EC] 81 mg PO DAILY@89906/06/17 09/25/18 History Cholecalciferol [Vitamin D3 (25 1,000 unit PO DAILY@89906/06/17 09/25/18 History Mcg = 1000 Iu)] Levothyroxine Sodium [Synthroid] 25 mcg PO DAILY@0600 06/06/17 09/25/18 History buPROPion SR [Wellbutrin SR] 100 mg PO BID@0900,209906/06/17 09/25/18 History Atorvastatin [Lipitor] 20 mg PO HS@209901/11/18 09/25/18 History Latanoprost [Xalatan 0.005%] 1 drop BOTH EYES HS@209901/11/18 09/25/18 History Acetaminophen Tab [Tylenol Tab] 650 mg PO Q4H PRN 05/03/18 09/25/18 History Ammonium Lactate Cream [Lac-Hydrin 1 applic TOPICAL BID 05/03/18 09/25/18 History 12% Cream] Diclofenac Sodium Gel [Voltaren 2 gm TOPICAL BID@899,209905/03/18 09/25/18 History Gel] Ferrous Sulfate [Feosol] 325 mg PO HS@209905/03/18 09/25/18 History Lactose-Reduced Food [Ensure Plus] 1 can PO TID@1000,1500,199905/03/18 09/25/18 History Omeprazole [PriLOSEC] 40 mg PO DAILY@0600 05/03/18 09/25/18 History Sennosides [Senna] 8.6 mg PO BID@0900,209905/03/18 09/25/18 History Timolol Maleate/Pf [Timoptic 0.25% 1 drop BOTH EYES BID@0900,209905/03/18 09/25/18 History Ocudose] Acetaminophen with Codeine 1 tab PO Q6H PRN 06/06/18 09/25/18 History [Tylenol w/codeine #3] Dorzolamide 2% [Trusopt 2%] 1 drops BOTH EYES BID@0900,209906/06/18 09/25/18 History Lactulose 10 gm PO BID PRN 06/06/18 09/25/18 History Magnesium Oxide [Magox 400] 400 mg PO DAILY@0900 06/06/18 09/25/18 History guaiFENesin [guaiFENesin Oral 200 mg PO Q4H PRN 06/06/18 09/25/18 History Solution] Allergies Allergy/AdvReac Type Severity Reaction Status Date / Time Penicillins Allergy Unknown Verified 04/24/19 16:56 Sulfa (Sulfonamide Allergy Unknown Verified 04/24/19 16:56 Antibiotics) Surgical - Exam BMI 19.9 - General cachectic - Eyes normal ocular movement - ENT normal pinna, normal nares - Neck no masses, trachea midline, no lymphadectomy - Respiratory normal respiratory effort, clear to auscultation - Cardiovascular Rhythm: regular Heart Sounds: normal: S1, S2 - Abdomen Nontender No guarding or rebound No organomegaly appreciated Abdomen: soft, non tender - Integumentary Puckering of the skin of the left breast - Musculoskeletal Wheelchair bound - Psychiatric Somewhat confused oriented to time, oriented to person Breast examination: Right breast: No dominant masses or nodules of concern Fibrocystic breast changes, tissue appears to be fibrofatty Right axilla: No adenopathy of concern Left breast: Large mass noted in the 6 o'clock position extending up towards the nipple, approximately 6 x 4 cm in size puckering of the skin at the area of the mass, the mass does not appear to be fixed to the chest wall Left axilla: No adenopathy of concern Results Ultrasound results of the left breast revealed 3.2 cm solid lesion in the left breast no other radiographic studies have been done Assessment and Plan Assessment: Impression: 1. 84-year-old white female with a solid mass in the left breast, highly suspicious for malignancy 2. Ultrasound abnormality left breast 3. Family history unknown secondary to sac patient is adopted 4. COPD 5. Dysphasia 6. Stage III kidney disease 7. Anxiety 3. Anemia 9. Hypothyroid 10. Pacemaker 11. Questionable impaired cognitive function Plan: 1. bilateral mammogram 2. Ultrasound core biopsy of left breast for definitive diagnosis 3. Follow-up after mammogram to determine if there are any other areas which would require biopsy 4. Most likely require metastatic workup 5. This is a complex case related to treatment decisions in view of the patient's major medical conditions including coronary artery disease with pacemaker and stents , stage III kidney disease, anxiety, COPD, and questionable impaired cognitive function. CC: Dr. Pugh
== END | disposition home or self-care (01) ==
LOC: WWCWWP 14:26
PROVIDERS: ATTEND Surgery
DX: Z53.9 Procedure and treatment not carried out, unspecified reason (principal)

== ENCOUNTER → 2019-04-29 | Outpatient (CLI) | payer MEDICARE, BC, OTHER ==
--- NOTE | 2019-04-29 11:53 | MM ---
Reason for exam: clinical finding. Baseline mammogram. Indicated problem(s): palpable abnormality and lump or thickening in the left breast. Physical Findings: Nurse did not find any significant physical abnormalities on exam. MG 3D Diag Mammo W/Cad LUPE Bilateral CC and MLO view(s) were taken. The breast tissue is heterogeneously dense. This may lower the sensitivity of mammography. Benign appearing bilateral calcifications. Left skin retraction and partially image left central, slightly medial posterior depth mass estimated at 3.3cm although obscured. Difficult positioning. These results were verbally communicated with the patient and result sheet given to the patient on 04/29/19. ASSESSMENT: Incomplete: need additional imaging evaluation, BI-RAD 0 RECOMMENDATION: Ultrasound of the left breast.
--- NOTE | 2019-04-29 11:55 | USB ---
Reason for exam: additional evaluation requested from abnormal screening. US Breast LT Left complete breast ultrasound includes all four quadrants, the retroareolar region and axilla. Finding demonstrates a 3.2 x 2.3 x 4.1cm hypoechoic, irregular, highly suspicious lesion at 6 o'clock. No abnormal axillary nodes. These results were verbally communicated with the patient and result sheet given to the patient on 04/29/19. ASSESSMENT: Highly suggestive of malignancy, BI-RAD 5 RECOMMENDATION: Ultrasound core biopsy of the left breast. Called office with mammographic findings and has scheduled an appointment for the patient for 06/07/19 at 10:[address] Truong. Biopsy scheduled for 06/11/19 at 12:20. PRELIMINARY REPORT CALLED AND FAXED TO DR. TRUONG ON 04/29/19.
== END | disposition home or self-care (01) ==
LOC: RADMAMWWP 08:39
PROVIDERS: ATTEND Surgery
DX: N63.20 Unspecified lump in the left breast, unspecified quadrant (principal); R92.8 Other abnormal and inconclusive findings on diagnostic imaging of breast; N63.10 Unspecified lump in the right breast, unspecified quadrant
CPT/HCPCS: 77066; 76641; G0279; 77062

== ENCOUNTER → 2019-05-21 | Day surgery (SDC) | payer MEDICARE, BC, OTHER ==
--- NOTE | 2019-05-21 12:58 | USB ---
EXAMINATION TYPE: US biopsy breast VAD LT DATE OF EXAM: 05/21/2019 CLINICAL HISTORY: ABN MAMMOGRAM R92.8. TECHNIQUE: Ultrasound guided core biopsy of left 6:00 breast. COMPARISON: NONE FINDINGS: The procedure of ultrasound guided core biopsy was explained to the patient. Benefits, alt ernatives, and risks were discussed. An informed consent was then obtained. The patient was placed in supine positioning for imaging and for the procedure. The overlying skin w as prepped and draped in usual sterile fashion. Lidocaine buffered with bicarbonate was used as anes thetic into the skin and subcutaneous tissue up to area of concern in the left 6:00 breast. A angela w as made with surgical scalpel. Under ultrasound guidance, a 12-gauge vacuum assisted biopsy gun device was used to obtain [address]. Following this, a biopsy clip was left in lesion. The patient tolerated the procedure well without any immediate complication. The patient was kept in the radiology department for short stay after the procedure and then discharged home in stable condi tion. IMPRESSION: Successful, uncomplicated ultrasound guided core biopsy of area of concern in the left 6: 00 breast, full pathology results to follow.
[2019-05-21 14:03] VITALS: BP 159/78; PULSE 69; RESP 18; TEMP 97.9
== END ==
LOC: RADUSWWP 11:09
PROVIDERS: ATTEND Surgery
DX: C50.912 Malignant neoplasm of unspecified site of left female breast (principal); Z17.0 Estrogen receptor positive status [ER+]
CPT/HCPCS: 19083; A4648; J2001; 88305; 88341; 88342

== ENCOUNTER → 2019-06-07 | Outpatient (CLI) | payer MEDICARE, OTHER ==
[2019-06-07 09:57] VITALS: BP 128/73; PULSE 70; RESP 18; TEMP 97.6
--- NOTE | 2019-06-07 10:41 | P.PN ---
Subjective Progress Note Date: 06/07/19 Principal diagnosis: left breast invasive lobular cancer Yoli is an 84 year old white female acetaminophen 03/28/19 with a mass in the left breast. An ultrasound core biopsy was performed which revealed invasive lobular carcinoma. This was graded to ER weakly positive NV negative HER-2 equivocal. The size of the lesion on physical exam is approximately 6 cm with some puckering of the skin. The patient has no complaints related to the biopsy. The patient has multiple medical comorbidities including COPD, dysphagia, stage III kidney disease, anxiety, anemia, hypothyroidism, cardiac disease requiring a pacemaker, and some dementia. The patient and her family would like to avoid surgical intervention if possible. I discussed the case with Dr. Abraham and although the lesion is weakly positive he feels that neoadjuvant hormonal therapy is appropriate. We have discussed around the ducts and the recommendation is 1 mg a day with a prescription for 90 days to be refilled twice. She was started on this prior to seeing Dr. Abraham and this can be modified after she sees him. Objective - Constitutional General appearance: Present: average body habitus - EENT Eyes: Present: EOMI - Respiratory Details: decreased breath sounds at bases Respiratory: bilateral: CTA - Cardiovascular Heart sounds: normal: S1, S2 - Integumentary Integumentary Comment(s): left breast inferior medial aspect program of the skin related to breast mass no open ulceration is identified Assessment and Plan Assessment: Impression: 1. Newly diagnosed invasive lobular left breast cancer 2. Multiple medical comorbidities including COPD, dysphagia, stage III kidney disease, anxiety, anemia, hypothyroidism, cardiac disease requiring a pacemaker, dementia, and hypothyroidism 3. Question of stage as metastatic workup has not been performed Plan: 1. PET/CT 2. Neoadjuvant hormonal therapy with Arimidex, a prescription has been written for 1 mg a day for 90 days with 2 refills this was done after discussion with Dr. Antonio 3. Appointment with Dr. Abraham 4. We will follow this lesion and if it continues to grow would consider operative intervention, at the present time we will use neoadjuvant hormonal therapy 5. follow up in one month Yoli is an 84-year-old with medical comorbidities. Increased operative risk. She may have metastatic disease and a metastatic workup is being planned at this time. Additionally the patient does have weak ER positivity and may benefit from some neoadjuvant hormone therapy. This is being started and that she will follow with medical oncology. If she has progression of disease on this and does not have metastatic disease we may consider surgical intervention. Surgical intervention could also be considered for local control. CC: Dr. Pugh Encounter 60 minutes with > 50% of time counseling and planning Time with Patient: Greater than 30
== END | disposition home or self-care (01) ==
LOC: WWCWWP 09:31
PROVIDERS: ATTEND Surgery
DX: Z53.9 Procedure and treatment not carried out, unspecified reason (principal)

== ENCOUNTER → 2019-06-14 | Outpatient (CLI) | payer MEDICARE, OTHER ==
--- NOTE | 2019-06-18 10:18 | PE ---
Nuclear medicine PET/CT scan HISTORY: Breast carcinoma, initial Patient received 9.8 mCi F-18 FDG intravenously in delayed scanning was performed from skull base to the mid thighs. Localization and attenuation correction CT scan was performed. No comparisons neck and CHEST: There are multiple soft tissue nodules present in the right lower lobe of varying siz es, largest nodule at the costophrenic angle on the right measuring 2.2 cm. No significant associated hypermetabolic uptake. There is a left breast mass also present, no significant uptake. Generator is present in left pectoral region, there are leads coursing into the heart. Consolidation present julius g the left heart border. No pleural pericardial effusion. ABDOMEN: No adrenal mass or retroperitoneal adenopathy. Atheromatous changes are present within the a jose. No evident liver mass, no suspicious hypermetabolic uptake. There is no ascites. Urinary bladde r is distended. Uterus and adnexal structures are not seen. No inguinal adenopathy, no pelvic adenopa thy Osseous structures show degenerative disc disease and facet arthropathy in the lower lumbar spine. Up take about the shoulders is likely degenerative. IMPRESSION: Breast mass, pulmonary nodules do not show associated hypermetabolic uptake. Postop ramírez es.
== END | disposition home or self-care (01) ==
LOC: RADPETMAIN 14:26
PROVIDERS: ATTEND Surgery
DX: C50.812 Malignant neoplasm of overlapping sites of left female breast (principal); R91.1 Solitary pulmonary nodule
CPT/HCPCS: 78815; A9552

== ENCOUNTER 2019-08-04 03:11 | Emergency (ER) | payer MEDICARE, BC, OTHER ==
--- NOTE | 2019-08-04 04:38 | ED ---
Lower Extremity Injury HPI - General Chief Complaint: Extremity Injury, Lower Stated Complaint: Bruised leg Time Seen by Provider: 08/04/19 03:31 Source: patient, EMS Mode of arrival: EMS Limitations: no limitations - History of Present Illness Initial Comments: Yoli is a pleasant 84-year-old female who presents to the ER today for evaluation of a bruise on the right thigh. Patient apparently had a fall at her intermediate 2 weeks ago. She reports that the bruises progressively worsened which became concerning for. Patient also reports she's having spasm-like pain in the thigh which she describes as a charley horse. This is been going on for the past 24 hours. Patient denies any weakness in the leg. She states she is not on any blood thinners. - Related Data Home Medications Medication Instructions Recorded Confirmed Allopurinol [Zyloprim] 300 mg PO DAILY@0900 06/06/17 06/07/19 Aspirin [Adult Low Dose Aspirin EC] 81 mg PO DAILY@0900 06/06/17 06/07/19 Cholecalciferol [Vitamin D3 (25 1,000 unit PO DAILY@0900 06/06/17 06/07/19 Mcg = 1000 Iu)] Levothyroxine Sodium [Synthroid] 25 mcg PO DAILY@0600 06/06/17 06/07/19 buPROPion SR [Wellbutrin SR] 100 mg PO BID@0900,209906/06/17 06/07/19 Atorvastatin [Lipitor] 20 mg PO HS@209901/11/18 06/07/19 Latanoprost [Xalatan 0.005%] 1 drop BOTH EYES HS@209901/11/18 06/07/19 Acetaminophen Tab [Tylenol Tab] 650 mg PO Q4H PRN 05/03/18 06/07/19 Lactose-Reduced Food [Ensure Plus] 1 can PO TID@1000,1500,199905/03/18 06/07/19 Omeprazole [PriLOSEC] 40 mg PO DAILY@0600 05/03/18 06/07/19 Sennosides [Senna] 8.6 mg PO BID@0900,209905/03/18 06/07/19 Timolol Maleate/Pf [Timoptic 0.25% 1 drop BOTH EYES BID@0900,209905/03/18 06/07/19 Ocudose] Acetaminophen with Codeine 1 tab PO Q6H PRN 06/06/18 06/07/19 [Tylenol w/codeine #3] Dorzolamide 2% [Trusopt 2%] 1 drops BOTH EYES BID@0900,2100 06/06/18 06/07/19 Lactulose 10 gm PO BID PRN 06/06/18 06/07/19 Magnesium Oxide [Magox 400] 400 mg PO DAILY@0900 06/06/18 06/07/19 guaiFENesin [guaiFENesin Oral 200 mg PO Q4H PRN 06/06/18 06/07/19 Solution] Carboxymethylcellulos/Glycerin 1 drop LEFT EYE DAILY PRN 05/10/19 06/07/19 [Refresh Relieva 0.5-0.9% Drop] Nepafenac [Ilevro] 1 drop LEFT EYE DAILY 05/10/19 06/07/19 Allergies Allergy/AdvReac Type Severity Reaction Status Date / Time Penicillins Allergy Unknown Verified 08/04/19 03:52 Sulfa (Sulfonamide Allergy Unknown Verified 08/04/19 03:52 Antibiotics) Review of Systems ROS Statement: Those systems with pertinent positive or pertinent negative responses have been documented in the HPI. ROS Other: All systems not noted in ROS Statement are negative. Past Medical History Past Medical History: COPD, Eye Disorder, GERD/Reflux, Thyroid Disorder Additional Past Medical History / Comment(s): Orthostatic hypotension, pacemaker,. Kidney disease Glaucoma, gi bleed History of Any Multi-Drug Resistant Organisms: None Reported Past Surgical History: Heart Catheterization With Stent, Orthopedic Surgery, Pacemaker, Tonsillectomy Additional Past Surgical History / Comment(s): left knee replacement. Laser surgery left eye Additional Past Anesthesia/Blood Transfusion Reaction / Comment(s): unknown Date of Last Stent Placement:: 2002? Type of Cardiac Device: Unknown Device Placement Date:: unknown Past Psychological History: Anxiety, Depression Smoking Status: Former smoker Past Alcohol Use History: None Reported Past Drug Use History: None Reported General Exam - General Exam Comments Initial Comments: Physical Exam GENERAL: Patient is well-developed and well-nourished. Patient is nontoxic and well-hydrated and is in no distress. HENT: Normocephalic, Atraumatic. EYES: PERRL, EOMI PULMONARY: Unlabored respirations. CARDIOVASCULAR: RRR Warm and well perfused extremities No lower extremity edema ABDOMEN: Non-distended SKIN: Senile purpura on bilateral hands and forearms Large dark hematoma on the anterior medial right thigh, compartments are soft : Deferred NEUROLOGIC: Alert and oriented Normal speech Normal gait MUSCULOSKELETAL: Moving all extremities with no apparent injury PSYCHIATRIC: No SI/HI Limitations: no limitations Course Vital Signs 08/04/19 03:44 Temperature 97.3 F L Pulse Rate 79 Respiratory 18 Rate O2 Sat by Pulse 97 Oximetry Medical Decision Making - Medical Decision Making Patient was seen and evaluated history is obtained from patient and EMS as well as nursing staff, nursing staff stated they were capable of having an ultrasound done at their facility. Patient does have tenderness of the bruise and reports having some horselike pain therefore an x-ray to review any underlying bony injury and labs will be evaluated. X-ray resulted with no signs of injury, labs are baseline, hemog lobin is 9.4 which is an improvement from previous. Creatinine is 1.5 which is at baseline, electronics are within normal limits. At this time patient stable for discharge home back to [facility] where she will have her ultrasound performed during the day. - Lab Data Result diagrams: 08/04/19 04:30 08/04/19 04:30 Lab Results 08/04/19 08/04/19 Range/Units 04:30 04:30 WBC 10.4 (3.8-10.6) k/uL RBC 2.76 L (3.80-5.40) m/uL Hgb 9.4 L (11.4-16.0) gm/dL Hct 28.4 L (34.0-46.0) % MCV 103.0 H (80.0-100.0) fL MCH 34.1 (25.0-35.0) pg MCHC 33.1 (31.0-37.0) g/dL RDW 13.8 (11.5-15.5) % Plt Count 239 (150-450) k/uL Neutrophils % 83 % Lymphocytes % 9 % Monocytes % 5 % Eosinophils % 2 % Basophils % 0 % Neutrophils # 8.7 H (1.3-7.7) k/uL Lymphocytes # 0.9 L (1.0-4.8) k/uL Monocytes # 0.5 (0-1.0) k/uL Eosinophils # 0.2 (0-0.7) k/uL Basophils # 0.0 (0-0.2) k/uL Macrocytosis Slight Sodium 137 (137-145) mmol/L Potassium 3.9 (3.5-5.1) mmol/L Chloride 104 (98-107) mmol/L Carbon Dioxide 21 L (22-30) mmol/L Anion Gap 12 mmol/L BUN 39 H (7-17) mg/dL Creatinine 1.51 H (0.52-1.04) mg/dL Est GFR (CKD-EPI)AfAm 36 (>60 ml/min/1.73 sqM) Est GFR (CKD-EPI)NonAf 31 (>60 ml/min/1.73 sqM) Glucose 128 H (74-99) mg/dL Calcium 9.3 (8.4-10.2) mg/dL Magnesium 1.9 (1.6-2.3) mg/dL Total Bilirubin 1.2 (0.2-1.3) mg/dL AST 31 (14-36) U/L ALT 15 (4-34) U/L Alkaline Phosphatase 83 (38-126) U/L Total Protein 6.5 (6.3-8.2) g/dL Albumin 3.9 (3.5-5.0) g/dL Disposition Clinical Impression: Contusion Disposition: HOME SELF-CARE Condition: Stable Instructions (If sedation given, give patient instructions): Hematoma (ED) Is patient prescribed a controlled substance at d/c from ED?: No Referrals: Rai Pugh MD [Primary Care Provider] - 1-2 days
[2019-08-04 04:41] LABS: Basophils % (A) 0 %; Eosinophils # (A) 0.2 k/uL (0-0.7); Eosinophils % (A) 2 %; HCT 28.4 % (34.0-46.0); HGB 9.4 gm/dL (11.4-16.0); Lymphocytes # (A) 0.9 k/uL (1.0-4.8); Lymphocytes % (A) 9 %; MCH 34.1 pg (25.0-35.0); MCHC 33.1 g/dL (31.0-37.0); Macrocytosis Slight; Mean Platelet Volume 8.2; Monocytes # (A) 0.5 k/uL (0-1.0); Monocytes % (A) 5 %; Neutrophils # (A) 8.7 k/uL (1.3-7.7); Neutrophils % (A) 83 %; Platelet Count 239 k/uL (150-450); RBC 2.76 m/uL (3.80-5.40); RDW 13.8 % (11.5-15.5); WBC 10.4 k/uL (3.8-10.6)
[2019-08-04 04:51] LABS: Albumin 3.9 g/dL (3.5-5.0); Calcium 9.3 mg/dL (8.4-10.2); Magnesium 1.9 mg/dL (1.6-2.3); Potassium 3.9 mmol/L (3.5-5.1); Total Bilirubin 1.2 mg/dL (0.2-1.3); Total Protein 6.5 g/dL (6.3-8.2)
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
[2019-08-04] MEDS ORDERED: ACETAMINOPHEN TAB 325 MG TAB PO STA (05:29)
[2019-08-04 05:56] VITALS: BP 138/68; PULSE 82; RESP 17; TEMP 97.7
== END 2019-08-04 06:54 | disposition home or self-care (01) ==
LOC: EC 03:11
DX: S70.11XA Contusion of right thigh, initial encounter (principal); D69.2 Other nonthrombocytopenic purpura; K21.9 Gastro-esophageal reflux disease without esophagitis; E07.9 Disorder of thyroid, unspecified; I95.1 Orthostatic hypotension; H40.9 Unspecified glaucoma; F32.9 Major depressive disorder, single episode, unspecified; F41.9 Anxiety disorder, unspecified; Z79.82 Long term (current) use of aspirin; Z79.890 Hormone replacement therapy; Z79.899 Other long term (current) drug therapy; Z95.0 Presence of cardiac pacemaker; Z87.891 Personal history of nicotine dependence; Z88.0 Allergy status to penicillin; Z88.2 Allergy status to sulfonamides; Z96.652 Presence of left artificial knee joint; Z87.19 Personal history of other diseases of the digestive system; Z98.890 Other specified postprocedural states; W19.XXXA Unspecified fall, initial encounter; Y92.129 Unspecified place in nursing home as the place of occurrence of the external cause
CPT/HCPCS: 36415; 80053; 83735; 85025; 99284

== ENCOUNTER → 2020-04-22 | Outpatient (CLI) | payer MEDICARE, OTHER ==
--- NOTE | 2020-04-22 11:30 | CT ---
EXAMINATION TYPE: CT chest wo con DATE OF EXAM: 04/22/2020 COMPARISON: Chest CT January 13, 2018. PET/CT June 14, 2019 HISTORY: Breast cancer CT DLP: 238.5 mGycm. Automated Exposure Control for Dose Reduction was Utilized. TECHNIQUE: CT scan of the thorax is performed without IV contrast. FINDINGS: LUNGS: Mild to moderate underlying emphysematous change with interval increase in size and number of scattered pulmonary nodules from prior CT and to lesser extent from prior PET CT. Nodules greatest in the bilateral lower lungs. For reference there is 10 x 7 mm superior right lower lobe nodule axial i mage 32 noted. Largest nodule right lung base just above the diaphragm measures 1.9 x 1.6 cm axial im age 13. For reference there is 15 x 15 mm lingular nodule abutting mediastinum axial image 44 No pleu ral effusion or pneumothorax. MEDIASTINUM: Lack of IV contrast is noted to limit evaluation for mediastinal and especially hilar ad enopathy. There are no definitive new greater than 1 cm hilar or mediastinal lymph nodes. No cardio megaly or pericardial effusion is seen. Persistent dual-lead pacemaker. Inferior to pacemaker there i s1 probable enlarging left breast mass difficult to accurately measure on noncontrast CT versus adjac ent fibroglandular tissue but likely 2.9 x 2.0 cm posteriorly slice image 52. Inferior skin thickenin g is new from prior study. OTHER: Exaggerated thoracic kyphosis. Scoliotic curvature. Multilevel severe disc space narrowing in the lower thoracic and upper lumbar spine. Moderate to severe multilevel spurring. Osseous structures are demineralized. 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 Likely continued prog ression or interval growth of left breast mass or neoplasm.
== END | disposition home or self-care (01) ==
LOC: RADCTMAIN 10:21
PROVIDERS: ATTEND Internal Medicine Hematology & Oncology
DX: C78.00 Secondary malignant neoplasm of unspecified lung (principal); C50.512 Malignant neoplasm of lower-outer quadrant of left female breast; Z88.0 Allergy status to penicillin; Z88.2 Allergy status to sulfonamides
CPT/HCPCS: 71250

== ENCOUNTER 2020-11-25 19:34 | Emergency (ER) | payer MEDICARE, OTHER ==
[2020-11-25 19:48] VITALS: BP 136/71; PULSE 71; RESP 18; TEMP 98.8
[2020-11-25] MEDS ORDERED: MORPHINE SULFATE 4 MG/ML SYRINGE IV STA (19:48)
[2020-11-25] MEDS ORDERED: LIDOCAINE 1% INJ 10MG/ML (20 ML MDV) SQ ONE (19:49)
--- NOTE | 2020-11-25 20:24 | CT ---
EXAMINATION TYPE: CT brain cspine wo con DATE OF EXAM: 11/25/2020 COMPARISON: 12/12/2018 HISTORY: fall Pain CT DLP: combined DLP 970.7 mGycm Automated exposure control for dose reduction was used. There is diffuse cerebral cortical atrophy. There is no mass effect nor midline shift. There is no si gn of intracranial hemorrhage. The calvarium is intact. There is some mucosal thickening in the front al and ethmoid air cells. There is opacification of the frontal sinuses with erosion of the inner tab le of the left frontal bone. There is variable mild sclerosis. Cervical vertebra have normal alignment. There is significant thickening of the transverse ligament a nd encroachment on the spinal canal. There is disc space narrowing throughout the cervical spine. The re is no compression fracture. The posterior elements are intact. I see no evidence of a cervical spi ne fracture. IMPRESSION: Moderately severe multilevel spondylotic changes. There is some cervical spinal stenosis at C1 level related to thickening of the transverse ligament. Unchanged. Cerebral atrophy. No acute intracranial abnormality. Opacification of the frontal sinuses with expans ion and erosion of the inner table bilaterally. This is consistent with a mucocele. This appears viridiana lar to old exam.
--- NOTE | 2020-11-25 20:29 | CT ---
EXAMINATION TYPE: CT facial bones wo con DATE OF EXAM: 11/25/2020 COMPARISON: CT brain 12/12/2018 HISTORY: fall CT DLP: combined DLP 970.7 mGycm Automated exposure control for dose reduction was used. Images were obtained from the bottom of the mandible to the top of the frontal sinuses with no contra st. Mandibular ring is intact. Zygomatic arches appear normal. Nasal bone is intact. Orbital margins are intact. There is no evidence of a blowout fracture. Maxilla is intact. There is no retro-orbital mass . There is opacification of the frontal sinuses with erosion of the inner table of the frontal bone helena aterally. There is variable mild mucosal thickening in the ethmoid sinuses. There is cerebral atrophy . IMPRESSION: Expansile lesion involving the frontal bone frontal sinuses with erosion of the inner table and high density material. This is consistent with the mucocele and not significantly different than old exam. Minimal ethmoid sinusitis. No fracture seen.
--- NOTE | 2020-11-25 20:30 | ED ---
Fall HPI - General Chief Complaint: Fall Stated Complaint: Fall Time Seen by Provider: 11/25/20 19:37 Source: patient, EMS, RN notes reviewed Mode of arrival: EMS - History of Present Illness Initial Comments: Patient is an 85-year-old female that presents to emergency room via EMS after falling. She fell forward hitting the right side of her forehead on the ground receiving a laceration and a small skin tear. She was sent here by her alf facility to get evaluated and a CT of her head. She said her pain was approximately a 5 out of 10 constant. She was in no apparent distress or pain while sitting up in bed during the exam interview. She denied any chest pain first breath headache nausea vomiting diarrhea constipation fever fatigue chills change in vision lightheadedness dizziness. - Related Data Home Medications Medication Instructions Recorded Confirmed Aspirin [Adult Low Dose Aspirin EC] 81 mg PO DAILY@0906/06/17 11/25/20 Cholecalciferol [Vitamin D3 (25 2,000 unit PO DAILY@89906/06/17 11/25/20 Mcg = 1000 Iu)] Levothyroxine Sodium [Synthroid] 25 mcg PO DAILY@0606/06/17 11/25/20 allopurinoL [Zyloprim] 300 mg PO DAILY@89906/06/17 11/25/20 buPROPion SR [Wellbutrin SR] 100 mg PO BID@09,209906/06/17 11/25/20 Latanoprost [Xalatan 0.005%] 1 drop BOTH EYES HS@210901/11/18 11/25/20 Acetaminophen Tab [Tylenol Tab] 650 mg PO Q4H PRN 05/03/18 11/25/20 Lactose-Reduced Food [Ensure Plus] 120 ml PO TID@1000,1300,209905/03/18 11/25/20 Sennosides [Senna] 8.6 mg PO BID@899,209905/03/18 11/25/20 Dorzolamide 2% [Trusopt 2%] 1 drops BOTH EYES BID@609,211906/06/18 11/25/20 Lactulose 10 gm PO BID PRN 06/06/18 11/25/20 guaiFENesin [guaiFENesin Oral 200 mg PO Q4H PRN 06/06/18 11/25/20 Solution] MORPHINE ORAL ARIELLE CONC 20mg/mL 5 mg PO Q8H PRN 11/25/20 11/25/20 [Roxanol Oral Soln Conc 20MG/ML] Metoprolol Succinate (ER) [Toprol 25 mg PO DAILY@0900 11/25/20 11/25/20 Xl] Ondansetron [Zofran] 4 mg PO Q8H PRN 11/25/20 11/25/20 Timolol 0.5% Ophth Soln [Timoptic 1 drop BOTH EYES BID@0600,2100 11/25/20 11/25/20 0.5% Ophth Soln] Allergies Allergy/AdvReac Type Severity Reaction Status Date / Time Penicillins Allergy Unknown Verified 11/25/20 20:47 Sulfa (Sulfonamide Allergy Unknown Verified 11/25/20 20:47 Antibiotics) Review of Systems ROS Statement: Those systems with pertinent positive or pertinent negative responses have been documented in the HPI. ROS Other: All systems not noted in ROS Statement are negative. Past Medical History Past Medical History: COPD, Eye Disorder, GERD/Reflux, Thyroid Disorder Additional Past Medical History / Comment(s): Orthostatic hypotension, pacemaker,. Kidney disease Glaucoma, gi bleed History of Any Multi-Drug Resistant Organisms: ESBL Date of last positivie culture/infection: 08/12/19 MDRO Source:: URINE Past Surgical History: Heart Catheterization With Stent, Orthopedic Surgery, Pacemaker, Tonsillectomy Additional Past Surgical History / Comment(s): left knee replacement. Laser surgery left eye Additional Past Anesthesia/Blood Transfusion Reaction / Comment(s): unknown Date of Last Stent Placement:: 2002? Type of Cardiac Device: Unknown Device Placement Date:: unknown Past Psychological History: Anxiety, Depression Smoking Status: Former smoker General Exam General appearance: alert, in no apparent distress Head exam: Present: normocephalic, normal inspection. Absent: atraumatic (2 cm laceration to the right side of the forehead along with a 5 similar by 570 her skin tear that is nonbleeding.) Eye exam: Present: normal appearance, PERRL, EOMI. Absent: scleral icterus, conjunctival injection, periorbital swelling Neck exam: Present: normal inspection Respiratory exam: Present: normal lung sounds bilaterally. Absent: respiratory distress, wheezes, rales, rhonchi, stridor Cardiovascular Exam: Present: regular rate, normal rhythm, normal heart sounds. Absent: systolic murmur, diastolic murmur, rubs, gallop, clicks GI/Abdominal exam: Present: soft, normal bowel sounds. Absent: distended, tenderness, guarding, rebound, rigid Extremities exam: Present: normal inspection, full ROM, normal capillary refill. Absent: tenderness, pedal edema, joint swelling, calf tenderness Neurological exam: Present: alert, oriented X3, CN II-XII intact Psychiatric exam: Present: normal affect, normal mood Skin exam: Present: warm, dry, intact, normal color. Absent: rash Course Vital Signs 11/25/20 19:38 Temperature 98.8 F Pulse Rate 71 Respiratory 18 Rate Blood Pressure 136/71 O2 Sat by Pulse 96 Oximetry Procedures - Laceration Laceration #1 Consent Obtained: verbal consent Indication: laceration Site: face (Right forehead) Size (cm): 3 Description: linear Depth: simple, single layer Anesthetic Used: lidocaine 1% Anesthesia Technique: local infiltration Amount (mls): 3 Pre-repair: irrigated extensively Type of Sutures: nylon Size of Sutures: 5-0 Number of Sutures: 3 Technique: simple, interrupted Patient Tolerated Procedure: well, no complications Medical Decision Making - Medical Decision Making 85-year-old female status post fall with right forehead laceration and skin tear. CT of the facial bones, CT of the brain and C-spine, basic labs ordered. Lidocaine ordered. Patient's facility called and stated that patient is hospice and they did not want any labs at this time. Patient tolerated suturing well. Case discussed with Dr. Wayne, patient discharged back to facility. - Radiology Data Radiology results: report reviewed, image reviewed CT of the brain and C-spine: Moderately severe multilevel spondylitic changes. There is some cervical spinal stenosis at C1 related to thickening of the transverse leg appeared unchanged cerebral atrophy. No acute intracranial abnormality. Opacities in the frontal sinuses with expansion Lani intertable bilaterally. This is consistent with mucocele. CT of the facial bones. Expansion side lesion involving the frontal bone frontal sinuses with erosion of intertable of hypertension care. This is consistent with mucocele and not significantly different than old exam. Minimal ethmoid sinusitis. No fracture seen. Disposition Clinical Impression: Fall, Laceration of forehead Disposition: HOME SELF-CARE Condition: Stable Instructions (If sedation given, give patient instructions): Fall Prevention for Older Adults (ED) Additional Instructions: Please return to the Emergency Department if symptoms worsen or any other concerns. Follow-up with primary care and facility in the next 3-5 days. Keep laceration and skin tear covered with a clean dry dressing. Can take Tylenol as needed for pain control. Is patient prescribed a controlled substance at d/c from ED?: No Referrals: Rai Pugh MD [Primary Care Provider] - 1-2 days Time of Disposition: 21:35
== END 2020-11-25 22:31 | disposition home or self-care (01) ==
LOC: EC 19:34
DX: S01.81XA Laceration without foreign body of other part of head, initial encounter (principal); J44.9 Chronic obstructive pulmonary disease, unspecified; K21.9 Gastro-esophageal reflux disease without esophagitis; F32.9 Major depressive disorder, single episode, unspecified; F41.9 Anxiety disorder, unspecified; Z79.82 Long term (current) use of aspirin; Z87.891 Personal history of nicotine dependence; Z88.0 Allergy status to penicillin; W01.10XA Fall on same level from slipping, tripping and stumbling with subsequent striking against unspecified object, initial encounter
CPT/HCPCS: 72125; 70486; 70450; 99284; 96374; 12013; J2270; J2001